=== PATIENT | male | born 1955 | race Hispanic/Latino ===

== ENCOUNTER 2019-04-10 22:33 | Emergency (ER) | payer OTHER ==
--- OUTSIDE RECORDS SUMMARY | 2019-04-10 22:35 | XMS REPORT | Summary of Care ---
:1955 Author Organization [facility] Address [address] [place] [address] Care Team Providers Name Role Phone Edward Pelaez Primary Care Provider Reason for Visit Reason Comments LAB WORK Encounter Details Date Type Department Care Team Description 03/15/2019 Employee Benefits Attorney Visit [facility] Wallace Gomez MD [address] [facility] [address] [place], [place] [address] Chest pain, unspecified type; Phlebotomy 1, [facility] Lab Essential hypertension; Lab-Nikolai TE (obstructive sleep apnea) [address] [facility] [place] [phone] Allergies No Known Allergiesdocumented as of this encounter (statuses as of 03/15/2019) Medications Medication Sig Dispensed Refills Start Date End Date Status METOPROLOL SUCCINATE TAKE 1 TABLET BY 90 tablet 1 02/13/2018 Active XL 50 mg 24 hr tablet MOUTH EVERY DAY aspirin 81 mg Take 1 tablet by 90 tablet 3 03/16/2018 Active chewable tablet mouth daily. lisinopril 40 mg Take 1 tablet by 90 tablet 3 08/30/2018 Active tabletIndications: mouth daily. Hypertension, unspecified type nitroglycerin 0.[address] 1 tablet 1 Bottle 5 12/27/2018 Active sublingual under the tongue tabletIndications: every 5 (five) Chest pain, minutes as needed unspecified type, RUSSELL for Chest pain. (dyspnea on exertion) ROSUVASTATIN 20 mg TAKE 1 TABLET BY 90 tablet 1 02/19/2019 Active tablet MOUTH EVERYDAY AT BEDTIME peg-electrolyte soln Take as directed 4000 mL 0 03/01/2019 Active 236-22.74-6.74 -5.86 before colonoscopy gram solution documented as of this encounter (statuses as of 03/15/2019) Active Problems Problem Noted Date Abdominal pain, epigastric 03/02/2019 Overview: Added automatically from request for surgery [id number] Colon cancer screening 03/02/2019 Overview: Added automatically from request for surgery [id number] Obesity (BMI 30-39.9) 04/26/2018 documented as of this encounter (statuses as of 03/15/2019) Immunizations Name Administration Dates Next Due Tdap 05/28/2013 documented as of this encounter Social History Tobacco Use Types Packs/Day Years Used Date Former Smoker Cigarettes 0.5 30 Quit: 09/29/2017 Smokeless Tobacco: Never Used Comments: Quit date: 09/29/17. Alcohol Use Drinks/Week oz/Week Comments Yes Sex Assigned at Date Recorded Not on file Job Start Date Occupation Industry Not on file Not on file Not on file Travel History Travel Start Travel End No recent travel history available. documented as of this encounter Last Filed Vital Signs Not on filedocumented in this encounter Plan of Treatment Date Type Specialty Care Team Description 03/22/2019 Appointment Cardiac Munitions Worker Wallace Gomez MD [address] [place] [address] [address] [place] [address] [phone] Outpt-Tracy, Ccl 04/09/2019 Hospital Encounter Surgery Bautista De León Abdominal pain, K, DO epigastric [address] [id number] [place], [place] [address] 04/09/2019 Surgery Surgery Bautista De León COLONOSCOPY K, DO [address] [id number] [place], [place] [address] 04/17/2019 Office Visit Surgery Bobbi Marquez MD 2240 [facility] [address] [place] [address] [phone] 08/29/2019 Office Visit Cardiology Wallace Gomez MD 146 [facility] [address] [place], [place] [address] 08/30/2019 Office Visit Internal Medicine PelaezEdward dumonth 301 [place] [address] [phone] 09/10/2019 Office Visit Gastroenterology Pasquale Baca MD 2240 [place] [address] [phone] Name Type Priority Associated Diagnoses Date/Time aPTT LAB Routine Chest pain, unspecified 03/15/2019 8:30 AM type CDT Essential hypertension TE (obstructive sleep apnea) BASIC METABOLIC PANEL LAB Routine Chest pain, unspecified 03/15/2019 8:30 AM (NA, K, CL, CO2, GLUCOSE, type CDT BUN, CREATININE, CA) Essential hypertension TE (obstructive sleep apnea) PROFILE / HEMOGRAM LAB Routine Chest pain, unspecified 03/15/2019 8:30 AM type CDT Essential hypertension TE (obstructive sleep apnea) PROTHROMBIN TIME / INR LAB Routine Chest pain, unspecified 03/15/2019 8: 30 AM type CDT Essential hypertension TE (obstructive sleep apnea) Health Maintenance Due Date Last Done Comments Zoster Recombinant Vaccine 2005 (SHINGRIX) (1 of 2) INFLUENZA VACCINE 04/15/2019 LUNG CANCER SCREEN: Recommended 03/06/2020 03/06/2019 for age 55-80 with 30 + pack year history DTaP,Tdap,and Td Vaccines (2 - Td) 05/28/2023 05/28/2013 COLONOSCOPY 04/26/2028 04/26/2018 HEPATITIS C (HCV) SCREEN Completed 02/27/2018 PNEUMOCOCCAL 0-64 YEARS COMBINED Aged Out No longer eligible based on SERIES patient's age to complete this topic documented as of this encounter Results Not on filedocumented in this encounter Visit Diagnoses Diagnosis Chest pain, unspecified type Essential hypertension Unspecified essential hypertension TE (obstructive sleep apnea) Obstructive sleep apnea (adult) (pediatric) documented in this encounter [phone] [address] [phone] [place], [place] 0 (Work) [address] documented as of this encounter
--- OUTSIDE RECORDS SUMMARY | 2019-04-10 22:35 | XMS REPORT | Summary of Care ---
:1955 Author Organization [facility] Address [address] [place] [address] Care Team Providers Name Role Phone Edward Pelaez Twin Primary Care Provider Encounter Details Date Type Department Care Team Description 03/15/2019 Orders Only [facility] Doctor Unassigned, No 301 [facility] [place] [address] 301 [place] [address] Allergies No Known Allergiesdocumented as of this [...] Overview: Added automatically from request for surgery [id number] Colon cancer screening 03/02/2019 Overview: Added automatically from request for surgery [id number] Obesity (BMI 30-39.9) 04/26/2018 documented as of [...] Treatment Date Type Specialty Care Team Description 03/15/2019 It Account Manager Visit Clinical Medical Wallace Gomez MD [address] [address] [phone] Laboratory 1, Adc Lab 03/22/2019 Appointment Cardiac Airplane Tester Wallace Gomez MD [address] [address] [phone] Outpt-Tracy, Ccl 04/09/2019 Hospital Encounter Surgery Genet, Abdominal pain, Bautista Martinez, DO epigastric [address] [id number] [place] [address] [phone] 04/09/2019 Surgery Surgery [facility], COLONOSCOPY Bautista Martinez DO [address] [id number] [place], [place] [address] 04/17/2019 Office Visit Surgery Bobbi Marquez MD 2240 [facility] [address] [place] [address] [phone] 08/29/2019 Office Visit Cardiology Wallace Gomez MD 146 [facility] [address] [place] [address] [phone] 08/30/2019 Office Visit Internal Medicine Edward Pelaez Twin [address] [place] [address] [phone] 09/10/2019 Office Visit Gastroenterology Pasquale Baca MD 2240 [place] [address] [phone] Health Maintenance Due Date Last Done Comments [...] this topic documented as of this encounter Procedures Procedure Name Priority Date/Time Associated Diagnosis Comments ASSIGNMENT OF BENEFITS Routine 03/15/2019 8:20 AM CDT documented in this encounter Results Not on filedocumented in this encounter Insurance Payer Benefit Plan / Group Subscriber ID Effective Dates Phone Address Type AETNA AETNA HMO [id number] 2017-Present HMO documented as of this encounter
--- OUTSIDE RECORDS SUMMARY | 2019-04-10 22:36 | XMS REPORT | Summary of Care ---
:1955 Author Organization [facility] Address [address] [place] [address] Care Team Providers Name Role Phone PelaezEdward francisco Twin Primary Care Provider Reason for Visit Reason Comments Other pre-visit planning Encounter Details Date Type Department Care Team Description 03/23/2019 Case Management [facility] Phoebe Harrison Other (pre-visit Hospitals and L, BOILER HOUSE INSPECTOR planning ) Clinics [address] [place] [address] [place] [address] [place], [place] [phone] [address] Allergies No Known Allergiesdocumented as of this encounter (statuses as of 03/23/2019) Medications Medication Sig Dispensed Refills Start Date [...] as of this encounter (statuses as of 03/23/2019) Active Problems Problem Noted Date Abdominal pain, epigastric 03/02/2019 Overview: Added automatically from request for surgery [id number] Colon cancer screening 03/02/2019 Overview: Added automatically from request for surgery [id number] Obesity (BMI 30-39.9) 04/26/2018 documented as of this encounter (statuses as of 03/23/2019) Immunizations Name Administration Dates Next Due Tdap [...] Treatment Date Type Specialty Care Team Description 04/09/2019 Hospital Encounter Surgery Bautista De León Abdominal pain, K, DO epigastric [address] [facility] FY[address] [place] [address] [phone] 04/09/2019 Anesthesia Event Surgery Lali Coffman RN 301 [place] [address] 04/09/2019 Surgery Surgery Bautista De León COLONOSCOPY K, DO [address] [id number] [place], [place] [address] 04/17/2019 Office Visit Surgery Bobbi Marquez MD 2240 [facility] [address] [place] [address] [phone] 08/29/2019 Office Visit Cardiology Wallace Gomez MD 146 [facility] [address] [place], [place] [address] 08/30/2019 Office Visit Internal Medicine Latanya Edward Lirianoh 301 [place] [address] [phone] 09/10/2019 Office Visit Gastroenterology Pasquale Baca MD 2240 [place] [address] [phone] Health Maintenance Due Date Last Done Comments [...] filedocumented in this encounter Visit Diagnoses Diagnosis 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
--- OUTSIDE RECORDS SUMMARY | 2019-04-10 22:36 | XMS REPORT | Summary of Care ---
:1955 Author Organization [facility] Address [address] [place] [address] Care Team Providers Name Role Phone Edwadr Pelaez Primary Care Provider Reason for Visit Reason Comments Notification Encounter Details Date Type Department Care Team Description 03/23/2019 Telephone [facility] Cardiothoracic Hernan Menchaca Jr., Notification Surgery-[place] [address] 100[address] [facility], [address] [place] [address] Floor [address] [place] [address] Allergies No Known Allergiesdocumented as of this [...] Overview: Added automatically from request for surgery [id number] Colon cancer screening 03/02/2019 Overview: Added automatically from request for surgery [id number] Obesity (BMI 30-39.9) 04/26/2018 documented as of [...] León Abdominal pain, K, DO epigastric 301 [facility] [id number] [place] [address] [phone] 04/09/2019 Anesthesia Event Surgery Lali Coffman RN 301 [place] [address] 04/09/2019 Surgery Surgery Bautista De León COLONOSCOPY K, DO [address] [id number] [place], [place] [address] 04/17/2019 Office Visit Surgery Bobbi Marquez MD 2240 [facility] [address] [place] [address] [phone] 08/29/2019 Office Visit Cardiology Wallace Gomez MD 146 [facility] [address] [place] [address] [phone] 08/30/2019 Office Visit Internal Medicine Edward Pelaez [facility] 301 [place] [address] [phone] 09/10/2019 Office Visit Gastroenterology Pasquale Baca MD 2240 [place] [address] [phone] Health Maintenance Due Date Last Done Comments [...] Dates Phone Address Type AETNA AETNA HMO [id number] 2017-Present HMO documented as of this encounter
--- OUTSIDE RECORDS SUMMARY | 2019-04-10 22:36 | XMS REPORT | Summary of Care ---
:1955 Author Organization [facility] Address [address] [place] [address] Care Team Providers Name Role Phone Latanya Edward Twin Primary Care Provider Reason for Visit (Routine) Status Reason Specialty Diagnoses / Procedures Referred By Contact Referred To Contact Closed Cardiology Diagnoses Chest pain, unspecified type Essential hypertension TE (obstructive sleep apnea) Wallace Gomez MD Procedures Cardiac Cath Request for Service (Cardiology Use Only) HI CATH PLACEMENT & NJX CORONARY ART ANGIO IMG S&I HI CATH PLMT L HRT & ARTS W/NJX & ANGIO IMG S&I HI ENDOLUMINAL CORONARY IVUS OCT I&R INITIAL VESSEL 146 [facility] HI IV DOP HELEN&/OR PRESS C/ABHI RSRV CIERRA 1ST VSL HI PRQ TRLUML CORONARY ANGIOPLASTY ONE ART/BRANCH HI PRQ TRLUML CORONARY ANGIO/ATHERECT ONE ART/BRNCH HI PRQ TRLUML CORONARY STENT W/ANGIO ONE ART/BRNCH DRIVE HI PRQ TRLUML CORONRY STENT/ATH/ANGIO ONE ART/BRNCH [address] [place] [address] Encounter Details Date Type Department Care Team Description 03/22/2019 [facility] Wallace Gomez MD 146 [facility] [address] [place] [address] Status post cardiac Encounter Center Cardiac Randolph Espinosa MD [address] [id number] [place], [place] [address] catheterization Catheterization Lab Outpt-Zina Molina (Primary Dx) [facility], 6th Floor 712 [facility] [address], [address] [place] [phone] Allergies No Known Allergiesdocumented as of this [...] Overview: Added automatically from request for surgery [id number] Colon cancer screening 03/02/2019 Overview: Added automatically from request for surgery [id number] Obesity (BMI 30-39.9) 04/26/2018 documented as of [...] of this encounter Last Filed Vital Signs Vital Sign Reading Time Taken Comments Blood Pressure 121/77 03/22/2019 12:05 PM CDT standing Pulse 77 03/22/2019 12:06 PM CDT Temperature - - Respiratory Rate 18 03/22/2019 12:06 PM CDT Oxygen Saturation 96% 03/22/2019 12:06 PM CDT Inhaled Oxygen Concentration - - Weight 107 kg (235 lb 14.3 oz) 03/22/2019 7:58 AM CDT Height 172.7 cm (5' 7.99") 03/22/2019 7:58 AM CDT Body Mass Index 35.88 03/22/2019 7:58 AM CDT documented in this encounter Progress Notes Murphy Sanchez MD - 03/22/2019 1:58 PM CDTPatient was seen prior to discharge, he spoke with Dr Lainez from CT surgery, CT surgery team will call him with a date for surgery. Doing well, asymptomatic, right radial puncture site looks well, no hematoma or bleed. Good radial pulse. OK to discharge home. Murphy Sanchez Fellow, General Cardiology, [facility]. documented in this encounter Plan of Treatment Date Type Specialty Care Team Description 04/09/2019 Hospital Encounter Surgery Bautista De León Abdominal pain, K, DO epigastric [address] [id number] [place] [address] [phone] 04/09/2019 Anesthesia Event Surgery Lali Coffman, RN 301 [place] [address] 04/09/2019 Surgery Surgery Bautista De León COLONOSCOPY K, DO [address] [id number] [place] [address] [phone] 04/17/2019 Office Visit Surgery Bobbi Marquez MD 2240 [facility] [address] [place] [address] [phone] 08/29/2019 Office Visit Cardiology Wallace Gomez MD 146 [facility] [address] [place] [address] 08/30/2019 Office Visit Internal Medicine Edward Pelaezh 301 [place] [address] [phone] 09/10/2019 Office Visit Gastroenterology Pasquale Baca MD 2240 [place] [address] [phone] Health Maintenance Due Date Last Done Comments [...] Procedure Name Priority Date/Time Associated Diagnosis Comments POCT ACT LOW RANGE Routine 03/22/2019 10:13 AM Results for this CDT procedure are in the results section. documented in this encounter Results POCT ACT LOW RANGE (03/22/2019 10:13 AM CDT) ACTLR 130 89 - 169 Seconds [facility] Specimen Blood Performing Organization Address City/State/Zipcode Phone Number [facility] CLIA: [id number], 301 [place] [address] [facility] documented in this encounter Visit Diagnoses Diagnosis Status post cardiac catheterization - Primary Other postprocedural status documented in this encounter Administered Medications Medication Order MAR Action Action Date Dose Rate Site clopidogrel (PLAVIX) tablet Given 03/22/2019 8:11 AM CDT 600 mg Oral, TITRATE - FOR PROCEDURE USE, 1 dose, Starting Linda 03/22/19 at 0811, Until Linda 03/22/19 at 0811, Routine FENTanyl PF (SUBLIMAZE (PF)) injection Given 03/22/2019 8:24 AM CDT 25 mcg Slow IV Push, TITRATE - FOR PROCEDURE USE, 1 dose, Starting Linda 03/22/19 at 0824, Until Linda 03/22/19 at 0824, Routine heparin 1,000 unit/mL injection Given 03/22/2019 8:31 AM CDT 3,000 Units Slow IV Push, TITRATE - FOR PROCEDURE USE, 1 dose, Starting Linda 03/22/19 at 0831, Until Linda 03/22/19 at 0831, Routine lidocaine 1% (PF) (XYLOCAINE) injection Given 03/22/2019 8:24 AM CDT 10 mL Infiltration, TITRATE - FOR PROCEDURE USE, 1 dose, Starting Linda 03/22/19 at 0824, Until Linda 03/22/19 at 0824, Routine midazolam (VERSED) injection Given 03/22/2019 8:24 AM CDT 1 mg IV Push, TITRATE - FOR PROCEDURE USE, 1 dose, Starting Linda 03/22/19 at 0824, Until Linda 03/22/19 at 0824, Routine NaCl 0.9% (NS) bolus infusion New Bag 03/22/2019 8:24 AM CDT 500 mL IV Piggyback, CONTINUOUS PRN, Starting Linda 03/22/19 at 0824, Until Linda 03/22/19 at 0824, STAT documented in this encounter [phone] [address] [phone] [place], [place] 0 (Work) [address] documented as of this encounter
--- OUTSIDE RECORDS SUMMARY | 2019-04-10 22:36 | XMS REPORT | Summary of Care ---
:1955 Author Organization [facility] Address [address] [place] [address] Care Team Providers Name Role Phone Edward Pelaez Primary Care Provider Encounter Details Date Type Department Care Team Description 03/22/2019 Prep For Surgery [facility] Hernan Menchaca Jr., and Clinics [address] [place] [address] [place], [place] [phone] Allergies No Known Allergiesdocumented as of this [...] Overview: Added automatically from request for surgery [id number] Colon cancer screening 03/02/2019 Overview: Added automatically from request for surgery [id number] Obesity (BMI 30-39.9) 04/26/2018 documented as of [...] León Abdominal pain, K, DO epigastric 301 [facility] [id number] [place], [place] [address] 04/09/2019 Anesthesia Event Surgery Lali Coffman RN [address] [place] [address] 04/09/2019 Surgery Surgery Bautista De León COLONOSCOPY K, DO 301 [facility] NL3985 [place], [place] [address] 04/17/2019 Office Visit Surgery Bobbi Marquez MD 2240 [facility] [address] [place] [address] [phone] 08/29/2019 Office Visit Cardiology Wallace Gomez MD 146 [facility] [address] [place], [place] [address] 08/30/2019 Office Visit Internal Medicine Edward Pelaez Twin 301 [place] [address] [phone] 09/10/2019 Office Visit Gastroenterology Pasquale Baca MD 2240 [place] [address] [phone] Health Maintenance Due Date Last Done Comments [...] Dates Phone Address Type AETNA AETNA HMO [id number] 2017-Present HMO documented as of this encounter
--- OUTSIDE RECORDS SUMMARY | 2019-04-10 22:36 | XMS REPORT | Summary of Care ---
:1955 Author Organization [facility] Address [address] [place] [address] Care Team Providers Name Role Phone Edward Pelaez Primary Care Provider Reason for Visit Reason Comments Pre-Visit Planning Encounter Details Date Type Department Care Team Description 03/15/2019 Telephone [facility] Wallace Gomez MD Pre-Visit Planning Cardiac Catheterization 146 [facility], 6th [address] Floor [place] [address] [address], [address] [place] [phone] Allergies No Known Allergiesdocumented as of this [...] Overview: Added automatically from request for surgery [id number] Colon cancer screening 03/02/2019 Overview: Added automatically from request for surgery [id number] Obesity (BMI 30-39.9) 04/26/2018 documented as of [...] Specialty Care Team Description 03/22/2019 Appointment Cardiac Remediation Consultant Wallace Gomez MD 146 [facility] [address] [place] [address] [phone] Outpt-Tracy, Ccl 04/09/2019 Hospital Encounter Surgery Bautista De León Abdominal pain, K, DO epigastric [address] [id number] [place] [address] [phone] 04/09/2019 Surgery Surgery Bautista De León COLONOSCOPY K, DO [address] [id number] [place], [place] [address] 04/17/2019 Office Visit Surgery Bobbi Marquez MD 2240 [facility] [address] [place] [address] [phone] 08/29/2019 Office Visit Cardiology Wallace Gomez MD 146 [facility] [address] [place] [address] [phone] 08/30/2019 Office Visit Internal Medicine Edward Pelaez Twin [address] [place] [address] [phone] 09/10/2019 Office Visit Gastroenterology Pasquale Baca MD 2240 [place] [address] [phone] Health Maintenance Due Date Last Done Comments [...] Dates Phone Address Type AETNA AETNA HMO [id number] 2017-Present HMO documented as of this encounter
--- OUTSIDE RECORDS SUMMARY | 2019-04-10 22:36 | XMS REPORT | Summary of Care ---
:1955 Author Organization [facility] Address [address] [place] [address] Care Team Providers Name Role Phone Edward Pelaez Primary Care Provider Reason for Referral (GENEVA) Status Reason Specialty Diagnoses / Procedures Referred By Referred To Contact Contact Closed Vascular Diagnoses Coronary artery disease involving [place] coronary artery of [place] heart with other form of angina pectoris Preop cardiovascular exam Phoebe Harrison Sonography Procedures CAROTID DUPLEX BILATERAL BY VASCULAR LAB [place] [address] [address] Reason for Visit Reason Comments Pre-Op Exam Encounter Details Date Type Department Care Team Description 03/23/2019 Case Management [facility] and Phoebe Harrison, Pre -Op Exam Clinics [address] [address] [place], [place] [phone] [address] Allergies No Known Allergiesdocumented as of [...] Overview: Added automatically from request for surgery [id number] Colon cancer screening 03/02/2019 Overview: Added automatically from request for surgery [id number] Obesity (BMI 30-39.9) 04/26/2018 documented as of [...] Signs Not on filedocumented in this encounter Progress Notes Phoebe Harrison FNP - 03/23/2019 10:47 AM CDTPatient told to go to [facility] before 4pm for carotid duplex. . Patient verbalized understanding. Colonoscopy screening cancelled and to be rescheduled post CABG. DALIA HarveyC Cardiothoracic Surgery Pager: [phone] Provider # [id number] documented in this encounter Plan of Treatment Date Type Specialty Care Team Description 04/09/2019 Hospital Encounter Surgery Bautista De León Abdominal pain, K, DO epigastric [id number] [place] [address] [phone] 04/09/2019 Anesthesia Event Surgery Lali Coffman, RN 301 [place] [address] 04/09/2019 Surgery Surgery Bautista De León COLONOSCOPY K, DO [address] [id number] [place], [place] 6745[address] 04/17/2019 [place] [address] [place] [address] 2.100 [place], [place] 561343 08/29/2019 Office Visit Cardiology Wallace Gomez MD [address] [facility] [address] [place], [place] [address] 08/30/2019 Office Visit Internal Medicine Edward Pelaez [place] [address] [place] [address] [phone] 09/10/2019 Office Visit Gastroenterology Pasquale Baca MD [address] [place] [address] 639233 Health Maintenance Due Date Last Done Comments [...] Visit Diagnoses Diagnosis Coronary artery disease involving [place] coronary artery of [place] heart with other form of angina pectoris - Primary Preop cardiovascular exam Pre-operative cardiovascular examination documented in this encounter Insurance Payer Benefit Plan / Group Subscriber ID Effective Dates Phone Address Type AETNA AETNA HMO [id number] 2017-Present HMO documented as of this encounter
--- OUTSIDE RECORDS SUMMARY | 2019-04-10 22:36 | XMS REPORT | Summary of Care ---
:1955 Author Organization [facility] Address [address] [place] [address] Care Team Providers Name Role Phone Edward Pelaez Primary Care Provider Reason for Visit Reason Comments Orders Encounter Details Date Type Department Care Team Description 03/23/2019 Case Management [facility] and Phoebe Harrison Orders Clinics [address] [address] [place] [phone] [address] Allergies No Known Allergiesdocumented as of [...] Overview: Added automatically from request for surgery [id number] Colon cancer screening 03/02/2019 Overview: Added automatically from request for surgery [id number] Obesity (BMI 30-39.9) 04/26/2018 documented as of [...] León Abdominal pain, K, DO epigastric [address] [address] [phone] 04/09/2019 Anesthesia Event Surgery Lali Coffman RN 301 [place] [address] 04/09/2019 Surgery Surgery Bautista De León COLONOSCOPY K, DO 301 [facility] [id number] [place], [place] [address] 04/17/2019 Office Visit Surgery Bobbi Marquez MD [address] [facility] [address] [place] [address] [phone] 08/29/2019 Office Visit Cardiology Wallace Gomez MD 146 [facility] [address] [place], [place] [address] 08/30/2019 Office Visit Internal Medicine Edward Pelaez 301 [place] [address] [phone] 09/10/2019 Office Visit Gastroenterology Pasquale Baca MD 2240 [place] [address] [phone] Name Type Priority Associated Diagnoses Order Schedule Type and Screen - LAB Routine Coronary artery disease Expected: 03/23/2019, involving [place] coronary Expires: 04/04/2019 artery of [place] heart with other form of angina pectoris Preop examination URINALYSIS LAB Routine Coronary artery disease Expected: 03/23/2019, involving [place] coronary Expires: 04/04/2019 artery of [place] heart with other form of angina pectoris Preop examination XR CHEST 2 VW IMAGING Routine Coronary artery disease Expected: 03/23/2019, involving [place] coronary Expires: 04/04/2019 artery of [place] heart with other form of angina pectoris Preop examination Health Maintenance Due Date Last Done Comments [...] Visit Diagnoses Diagnosis Coronary artery disease involving [place] coronary artery of [place] heart with other form of angina pectoris - Primary Preop examination Preoperative examination, unspecified documented in this encounter Insurance Payer Benefit Plan / Group Subscriber ID Effective Dates Phone Address Type AETNA AETNA O [id number] 2017-Present HMO documented as of this encounter
--- OUTSIDE RECORDS SUMMARY | 2019-04-10 22:37 | XMS REPORT | Summary of Care ---
:1955 Author Organization [facility] Address [address] [place] [address] Care Team Providers Name Role Phone Edward Pelaez Primary Care Provider Reason for Referral (GENEVA) Status Reason Specialty Diagnoses / Procedures Referred By Referred To Contact Contact Closed Vascular Diagnoses Coronary artery disease involving [place] coronary artery of [place] heart with other form of angina pectoris Preop cardiovascular exam Phoebe Harrison Sonography Procedures CAROTID DUPLEX BILATERAL BY VASCULAR LAB [facility] 301 [place] [address] (GENEVA) Status Reason Specialty Diagnoses / Procedures Referred By Referred To Contact Contact Closed Vascular Diagnoses Coronary artery disease involving [place] coronary artery of [place] heart with other form of angina pectoris Preop cardiovascular exam Phoebe Harrison Sonography Procedures CAROTID DUPLEX BILATERAL BY VASCULAR LAB [facility] 301 [place] [address] Reason for Visit (Routine) Status Reason Specialty Diagnoses / Referred By Referred To Procedures Contact Contact Closed IM-CARDIOVASCULAR Diagnoses Coronary artery disease involving [place] coronary artery of [place] heart with other form of angina pectoris CAROTID DUPLEX BILATERAL BY VASCULAR LAB Hernan Menchaca, Adc Cardio DISEASE / Vascular Procedures CAROTID DUPLEX BILATERAL BY VASCULAR LAB [place] DUPLEX SCAN EXTRACRANIAL,BILAT VAS LAB STUDY [id number] - CAROTID DUPLEX BILATERAL BY VASCULAR LAB [id number] - [place] DUPLEX SCAN EXTRACRANIAL,JACKIE Salgado MD Vascular Sonography 301 [place] [address] Encounter Details Date Type Department Care Team Description 03/23/2019 [facility] Jr., MD 301 [place] [address] [facility] Cardio Vascular [address] [place] [address] Allergies No Known Allergiesdocumented as of this encounter (statuses as of 03/24/2019) Medications Medication Sig Dispensed Refills Start Date [...] as of this encounter (statuses as of 03/24/2019) Active Problems Problem Noted Date Coronary artery disease involving [place] coronary artery of [place] heart 03/23 with other form of angina pectoris Overview: Added automatically from request for surgery [id number] Abdominal pain, epigastric 03/02/2019 Overview: Added automatically from request for surgery [id number] Colon cancer screening 03/02/2019 Overview: Added automatically from request for surgery [id number] Obesity (BMI 30-39.9) 04/26/2018 documented as of this encounter (statuses as of 03/24/2019) Immunizations Name Administration Dates Next Due Tdap [...] Treatment Date Type Specialty Care Team Description 04/05/2019 Hospital Encounter Ambulatory Surgical Hernan Menchaca Coronary artery MD Naomi disease involving [address] [facility] [place] coronary [place] artery of [place] [address] heart with other [phone] form of angina pectoris 04/09/2019 Hospital Encounter Surgery Bautista De León Abdominal pain, K, DO epigastric [address] 4979[address] 04/09/2019 Anesthesia Event Surgery Lali Coffman RN 301 [place] [address] 04/09/2019 Surgery Surgery Bautista De León COLONOSCOPY K, DO [address] [address] 04/17/2019 Office Visit Surgery Bobbi Marquez MD 2240 [facility] [address] [place] [address] [phone] 08/29/2019 Office Visit Cardiology Wallace Gomez MD [address] [facility] [address] [place], [place] [address] 08/30/2019 Office Visit Internal Medicine Edward Pelaezh [address] [place] [address] [phone] 09/10/2019 Office Visit Gastroenterology Pasquale Baca MD [address] [place] [address] [phone] Health Maintenance Due Date Last Done Comments [...] Procedure Name Priority Date/Time Associated Diagnosis Comments CAROTID DUPLEX GENEVA 03/23/2019 10:25 AM Coronary artery disease BILATERAL BY VASCULAR CDT involving [place] coronary LAB artery of [place] heart with other form of angina pectoris Preop cardiovascular exam documented in this encounter Results Not on filedocumented in this encounter Visit Diagnoses Diagnosis Coronary artery disease involving [place] coronary artery of [place] heart with other form of angina pectoris Preop cardiovascular exam Pre-operative cardiovascular examination documented in this encounter [phone] [address] [phone] [place], [place] 0 (Work) [address] documented as of this encounter
--- OUTSIDE RECORDS SUMMARY | 2019-04-10 22:37 | XMS REPORT | Summary of Care ---
:1955 Author Organization [facility] Address [address] [place] [address] Care Team Providers Name Role Phone Edward Pelaez Primary Care Provider Reason for Visit (Routine) Status Reason Specialty Diagnoses / Procedures Referred By Contact Referred To Contact Closed Radiology Procedures Phoebe Harrison, Jack X-Ray XR CHEST 2 [facility] [address] [facility] XR CHEST 2 301 [place] [address] Encounter Details Date Type Department Care Team Description 04/03/2019 Hospital Encounter [facility] Phoebe Harrison Arrived [place] [facility] [address] [facility] [address] [place] [address] [place], [place] [phone] [address] Allergies No Known Allergiesdocumented as of this encounter (statuses as of 04/04/2019) Medications Medication Sig Dispensed Refills Start Date [...] as of this encounter (statuses as of 04/04/2019) Active Problems Problem Noted Date Coronary artery disease involving [place] coronary artery of [place] heart 03/23 with other form of angina pectoris Overview: Added automatically from request for surgery [id number] Abdominal pain, epigastric 03/02/2019 Overview: Added automatically from request for surgery [id number] Colon cancer screening 03/02/2019 Overview: Added automatically from request for surgery [id number] Obesity (BMI 30-39.9) 04/26/2018 documented as of this encounter (statuses as of 04/04/2019) Immunizations Name Administration Dates Next Due Tdap [...] Coronary artery MD Naomi disease involving [address] [place] [address] [facility] artery of [place] [address] heart with other [phone] form of angina [phone] pectoris (Fax) 04/05/2019 Anesthesia Event Surgery Lakeisha Goel RN 04/05/2019 Surgery Surgery Hernan Menchaca CORONARY ARTERY MD Naomi BYPASS GRAFT 301 [place] [phone] 04/17/2019 Office Visit Surgery Bobbi Marquez MD 2240 [facility] 2.100 [place] [address] [phone] 08/29/2019 Office Visit Cardiology Wallace Gomez MD [address] [place] [address] [address] [place] [address] [phone] 08/30/2019 Office Visit Internal Medicine Edward Pelaez [facility] 301 [place] [address] [phone] 09/10/2019 Office Visit Gastroenterology Pasquale Baca MD 2240 [place], [place] [address]23[address] Health Maintenance Due Date Last Done Comments Zoster Recombinant Vaccine 2005 (SHINGRIX) (1 of 2) INFLUENZA VACCINE (#1) 2019 LUNG CANCER SCREEN: Recommended 03/06/2020 03/06/2019 for age 55-80 with 30 + pack year history DTaP,Tdap,and Td Vaccines (2 - Td) 05/28/2023 05/28/2013 COLONOSCOPY 04/26/2028 04/26/2018 HEPATITIS C (HCV) SCREEN Completed 02/27/2018 PNEUMOCOCCAL 0-64 YEARS COMBINED Aged Out No longer eligible based on SERIES patient's age to complete this topic documented as of this encounter Procedures Procedure Name Priority Date/Time Associated Diagnosis Comments XR CHEST 2 VW Routine 04/03/2019 2:10 Coronary artery Results for this PM CDT disease involving procedure are in rosebud coronary the results artery of rosebud section. heart with other form of angina pectoris Preop examination CONSENT/REFUSAL FOR Routine 04/03/2019 1:48 DIAGNOSIS AND PM CDT TREATMENT ASSIGNMENT OF Routine 04/03/2019 1:48 BENEFITS PM CDT documented in this encounter Results XR CHEST 2 VW (04/03/2019 2:10 PM CDT) Specimen Narrative Performed At HISTORY: Preop for CABG. PACS/VR/DOSE TECHNIQUE: PA and lateral views of the chest are obtained. Comparison made with 12/27/2018 study. FINDINGS: Poor inspiratory effort is shown by the patient. No acute pneumonia detected. No pneumothorax or pleural effusion or pulmonary congestion. Cardiothoracic ratio of approximately 13.2/34.3 cm is consistent with normal cardiac size. Thoracic aorta is elongated and tortuous. Posterior segment of left fifth rib is slightly expansile without any destruction of the cortex. 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 CONCLUSIONS: No signs of acute cardiopulmonary disease. Procedure Note [facility], Radiant Results Inft User - 04/03/2019 2:14 PM CDT HISTORY: Preop for CABG. TECHNIQUE: PA and lateral views of the chest are obtained. Comparison made with 12/27/2018 study. FINDINGS: Poor inspiratory effort is shown by the patient. No acute pneumonia detected. No pneumothorax or pleural effusion or pulmonary congestion. Cardiothoracic ratio of approximately 13.2/34.3 cm is consistent with normal cardiac size. Thoracic aorta is elongated and tortuous. Posterior segment of left fifth rib is slightly expansile without any destruction of the cortex. 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 CONCLUSIONS: No signs of acute cardiopulmonary disease. Performing Organization Address City/State/Zipcode Phone Number PACS/VR/DOSE documented in this encounter Visit Diagnoses Diagnosis Coronary artery disease involving [place] coronary artery of rose[place] heart with other form of angina pectoris Preop examination Preoperative examination, unspecified documented in this encounter [phone] [address] [phone] [place], [place] 0 (Work) [address] documented as of this encounter
--- OUTSIDE RECORDS SUMMARY | 2019-04-10 22:37 | XMS REPORT | Summary of Care ---
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 [facility] Phoebe Harrison, TAX RECORD CLERK 301 [place] [address] Coronary artery disease involving [place] coronary artery of [place] heart with other form of angina pectoris; Phlebotomy 1, Adc Lab Preop examination Lab-[address] [place] [phone] Allergies No Known Allergiesdocumented as of this encounter (statuses as of 04/03/2019) Medications Medication Sig Dispensed Refills Start Date [...] as of this encounter (statuses as of 04/03/2019) Active Problems Problem Noted Date Coronary artery disease involving [place] coronary artery of [place] heart 03/23 with other form of angina pectoris Overview: Added automatically from request for surgery [id number] Abdominal pain, epigastric 03/02/2019 Overview: Added automatically from request for surgery [id number] Colon cancer screening 03/02/2019 Overview: Added automatically from request for surgery [id number] Obesity (BMI 30-39.9) 04/26/2018 documented as of this encounter (statuses as of 04/03/2019) Immunizations Name Administration Dates Next Due Tdap [...] Hospital Encounter Ambulatory Surgical Hernan Menchaca Coronary deric Salgado MD disease involving [address] [facility] [place] coronary [place], [place] artery of [place] [address] heart with other [phone] form of angina [phone] pectoris (Fax) 04/05/2019 Anesthesia Event Surgery Lakeisha Goel, BHAVYA 04/05/2019 Surgery Surgery Hernan Menchaca CORONARY DERIC Salgado MD BYPASS GRAFT [address] [place] [address] 04/17/2019 Office Visit Surgery Bobbi Marquez MD 2240 [facility] [place] 2.[address] [place] [address] [phone] 08/29/2019 Office Visit Cardiology Wallace Gomez MD 146 [facility] [address] [place] [address] [phone] 08/30/2019 Office Visit Internal Medicine Edward Pelaezh 301 [place] [address] [phone] 09/10/2019 Office Visit Gastroenterology Pasquale Baca MD 2240 [place] [address] [phone] Name Type Priority Associated Diagnoses Date/Time URINALYSIS LAB Routine Coronary artery disease involving 04/03/2019 2:28 PM CDT [place] coronary artery of [place] heart with other form of angina pectoris [...] Visit Diagnoses Diagnosis Coronary artery disease involving [place] coronary artery of [place] heart with other form of angina pectoris Preop examination Preoperative examination, unspecified documented in this encounter [phone] [address] [phone] [place], [place] 0 (Work) [address] documented as of this encounter
--- OUTSIDE RECORDS SUMMARY | 2019-04-10 22:37 | XMS REPORT | Summary of Care ---
:1955 Author Organization [facility] Address [address] [place] [address] Care Team Providers Name Role Phone Edward Pelaez Primary Care Provider Encounter Details Date Type Department Care Team Description 03/07/2019 Patient Secure [facility] Internal Edward Pelaez [facility] [address] [phone] Allergies No Known Allergiesdocumented as of this encounter (statuses as of 04/07/2019) Medications Medication Sig Dispensed Refills Start Date End Date Status METOPROLOL SUCCINATE TAKE 1 TABLET BY 90 tablet 1 02/13/2018 Suspended XL 50 mg 24 hr MOUTH EVERY DAY tablet aspirin 81 mg Take 1 tablet by 90 tablet 3 03/16/2018 Suspended chewable tablet mouth daily. lisinopril 40 mg Take 1 tablet by 90 tablet 3 08/30/2018 Suspended tabletIndications: mouth daily. Hypertension, unspecified type nitroglycerin 0.[address] 1 tablet 1 Bottle 5 12/27/2018 Suspended sublingual under the tongue tabletIndications: every 5 (five) Chest pain, minutes as needed unspecified type, for Chest pain. RUSSELL (dyspnea on exertion) ROSUVASTATIN 20 mg TAKE 1 TABLET BY 90 tablet 1 02/19/2019 Suspended tablet MOUTH EVERYDAY AT BEDTIME peg-electrolyte soln Take as directed 4000 mL 0 03/01/2019 Suspended 236-22.74-6.74 -5.86 before gram solution colonoscopy documented as of this encounter (statuses as of 04/07/2019) Active Problems Problem Noted Date S/P CABG x 2 on 04/05/2019 04/05/2019 Coronary artery disease involving [place] coronary artery of [place] heart 03/23 with other form of angina pectoris Overview: Added automatically from request for surgery [id number] Abdominal pain, epigastric 03/02/2019 Overview: Added automatically from request for surgery [id number] Colon cancer screening 03/02/2019 Overview: Added automatically from request for surgery [id number] Obesity (BMI 30-39.9) 04/26/2018 TE on CPAP Hyperlipidemia HTN (hypertension) Former smoker Borderline diabetes documented as of this encounter (statuses as of 04/07/2019) Immunizations Name Administration Dates Next Due Tdap [...] Treatment Date Type Specialty Care Team Description 04/17/2019 Office Visit Surgery Bobbi Marquez MD [address] [place] [address] 2.100 [place] [address] [phone] 08/29/2019 Office Visit Cardiology Wallace Gomez MD [address] [place] [address] [place] [id number] 08/30/2019 Office Visit Internal Medicine Edward Pelaezh 301 [place] [address] [phone] 09/10/2019 Office Visit Gastroenterology Pasquale Baca MD [facility] [place] [address] [phone] Health Maintenance Due Date Last Done Comments [...] Dates Phone Address Type AETNA AETNA HMO [id number] 2017-Present HMO documented as of this encounter
--- OUTSIDE RECORDS SUMMARY | 2019-04-10 22:38 | XMS REPORT | Summary of Care ---
:1955 Author Organization [facility] Address [address] [place] [id number] Care Team Providers Name Role Phone Edward Pelaez Primary Care Provider Reason for Visit Reason Comments Cough Encounter Details Date Type Department Care Team Description 04/10/2019 Case Management [facility] Cardiothoracic Phoebe Harrison, Cough Surgery-[facility] [address] [facility] 1005 [facility], [address] [place] [address] Floor [id number] [place] [phone] Allergies No Known Allergiesdocumented as of this encounter (statuses as of 04/10/2019) Medications Medication Sig Dispensed Refills Start Date End Date Status aspirin 81 mg Take 1 tablet by 90 tablet 3 03/16/2018 Active chewable tablet mouth daily. ROSUVASTATIN 20 mg TAKE 1 TABLET BY 90 tablet 1 02/19/2019 Active tablet MOUTH EVERYDAY AT BEDTIME ferrous sulfate 325 Take 1 tablet by 60 tablet 0 04/10/2019 Active mg (65 mg iron) mouth 2 (two) tabletIndications: times daily with Coronary artery meals. disease involving [place] coronary artery of [place] heart with other form of angina pectoris metoprolol tartrate Take 1 tablet by 90 tablet 2 04/10/2019 Active 50 mg mouth every 8 tabletIndications: (eight) hours. S/P CABG (coronary artery bypass graft) spironolactone 25 mg Take 1 tablet by 7 tablet 0 04/10/2019 04/17/2019 Active tabletIndications: mouth daily for Coronary artery 7 days. disease involving [place] coronary artery of [place] heart with other form of angina pectoris docusate 100 mg Take 1 capsule 30 capsule 0 04/10/2019 05/10/2019 Active capsuleIndications: by mouth daily S/P CABG (coronary for 30 days. artery bypass graft) furosemide 40 mg Take 1 tablet by 14 tablet 0 04/10/2019 04/17/2019 Active tabletIndications: mouth every Coronary artery morning and disease involving evening for 7 [place] coronary days. artery of [place] heart with other form of angina pectoris acetaminophen-codeine Take 1 tablet by 42 tablet 0 04/10/2019 04/17/2019 Active 300-30 mg mouth every 4 tabletIndications: (four) hours as S/P CABG (coronary needed for Pain artery bypass graft) (scale 7-10) for up to 7 days. benzonatate (TESSALON Take 1 capsule 90 capsule 0 04/10/2019 05/10/2019 Active PERLES) 100 mg by mouth 3 capsuleIndications: (three) times Postsurgical daily for 30 aortocoronary bypass days. status, Cough, Fluid retention metOLazone 2.5 mg Take 1 tablet by 3 tablet 0 04/10/2019 04/13/2019 Active tabletIndications: mouth daily for body fluid retention 3 days. Indications: water retention documented as of this encounter (statuses as of 04/10/2019) Active Problems Problem Noted Date S/P CABG x 2 on 04/05/2019 04/05/2019 Coronary artery disease involving [place] coronary artery of [place] heart 03/23 with other form of angina pectoris Overview: Added automatically from request for surgery [id number] Abdominal pain, epigastric 03/02/2019 Overview: Added automatically from request for surgery [id number] Colon cancer screening 03/02/2019 Overview: Added automatically from request for surgery [id number] Obesity (BMI 30-39.9) 04/26/2018 TE on CPAP Hyperlipidemia HTN (hypertension) Former smoker Borderline diabetes documented as of this encounter (statuses as of 04/10/2019) Immunizations Name Administration Dates Next Due Pneumococcal Polysaccharide, PPSV23 (PNEUMOVAX) 04/10/2019 Tdap 05/28/2013 documented as of this encounter Social History Tobacco Use Types Packs/Day Years Used Date Former Smoker Cigarettes 0.5 30 Quit: 09/29/2017 Smokeless Tobacco: Never Used Alcohol Use Drinks/Week oz/Week Comments Yes Sex [...] Marquez MD [address] [facility] [address] [place], [place] [id number] 04/18/2019 Office Visit Thoracic Surgery Hernan Menchaca Jr., MD [address] [place] [phone] 08/29/2019 Office Visit Cardiology Wallace Gomez MD [address] [place] [address] [address] [place], [place] [address] 08/30/2019 Office Visit Internal Medicine Edward Pelaez [address] [place], [place] [phone] 09/10/2019 Office Visit Gastroenterology Pasquale Baca MD formerly [facility] [place], [place] [phone] Health Maintenance Due Date Last Done Comments [...] filedocumented in this encounter Visit Diagnoses Diagnosis Postsurgical aortocoronary bypass status - Primary Cough Fluid retention Other fluid overload documented in this encounter Insurance Payer Benefit Plan / Group Subscriber ID Effective Dates Phone Address [id number] 2017-Present HMO documented as of this encounter
--- OUTSIDE RECORDS SUMMARY | 2019-04-10 22:38 | XMS REPORT | Summary of Care ---
:1955 Author Organization [facility] Address [address] [place] [id number] Care Team Providers Name Role Phone Pelaez Edward Twin Primary Care Provider Reason for Referral Other (Routine) Status Reason Specialty Diagnoses / Referred By Referred To Procedures Contact Contact New Request Diagnoses S/P CABG x 2 BernardaHernan mckee Qiangjun, MD Procedures Discharge Follow-up: Specialty Provider WALLACE ALDANA; 4-6 Weeks MD Naomi [address] [place] [address] [phone] [place] [address] Phone: Radiology Services (Routine) Status Reason Specialty Diagnoses / Referred By Referred To Procedures Contact Contact New Request Diagnostic Diagnoses S/P CABG x 2 Bernarda, Radiology Procedures Chest 2 Views - Upright ( PA, LAT) on POD # 3 Hernan Salgado MD [address] [place] [phone] Radiology Services (Routine) Status Reason Specialty Diagnoses / Referred By Referred To Procedures Contact Contact New Request Diagnostic Diagnoses S/P CABG x 2 Bernarda, Radiology Procedures Chest 2 Views - Upright ( PA, LAT) on POD # 3 Hernan Salgado MD [address] [place] [address] Radiology Services (GENEVA) Status Reason Specialty Diagnoses / Referred By Referred To Procedures Contact Contact New Request Diagnostic Diagnoses S/P CABG (coronary artery bypass graft) Bernarda, Radiology Procedures Chest 1 View Hernan Salgado MD [address] [place] [address] Radiology Services (Emergency) Status Reason Specialty Diagnoses / Referred By Referred To Procedures Contact Contact New Request Diagnostic Diagnoses S/P CABG (coronary artery bypass graft) Bernarda, Radiology Procedures Abdomen XRay 1 View Hernan Salgado MD [address] [place] [address] Radiology Services (STAT) Status Reason Specialty Diagnoses / Referred By Referred To Procedures Contact Contact New Request Diagnostic Diagnoses S/P CABG (coronary artery bypass graft) Bernarda, Radiology Procedures Chest 1 View (on admission) Hernan Salgado MD [address] [place] [address] Radiology Services (Emergency) Status Reason Specialty Diagnoses / Referred By Referred To Procedures Contact Contact New Request Diagnostic Diagnoses S/P CABG (coronary artery bypass graft) Bernarda, Radiology Procedures Abdomen XRay 1 View Hernan Salgado MD [address] [place] [address] Radiology Services (GENEVA) Status Reason Specialty Diagnoses / Referred By Referred To Procedures Contact Contact New Request Diagnostic Diagnoses S/P CABG (coronary artery bypass graft) Bernarda, Radiology Procedures Chest 1 View Hernan Salgado MD [address] [place] [address] Radiology Services (STAT) Status Reason Specialty Diagnoses / Referred By Referred To Procedures Contact Contact New Request Diagnostic Diagnoses S/P CABG (coronary artery bypass graft) Bernarda, Radiology Procedures Chest 1 View (on admission) Hernan Salgado MD [address] [place] [address] Reason for Visit Auth/Cert Status Reason Specialty Diagnoses / Referred By Referred To Procedures Contact Contact Ambulatory Surgical Diagnoses Coronary artery disease involving mechoopda coronary artery 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 [I25.118] Fiordaliza Dsu Procedures [place] CABG, ARTERY-VEIN, THREE CORONARY ARTERY BYPASS GRAFT [address] [place] [address] Encounter Details Date Type Department Care Team Description 04/05/2019 - Hospital Encounter CT/ Vascular (FIORDALIZA Menchaca, Hernan Coronary artery 04/10/2019 9A) MD Naomi disease involving [address] [facility] [address] [facility] [place] [address] [place] artery of mechoopda [phone] heart with other [phone] form of angina [phone] pectoris (Fax) Allergies No Known Allergiesdocumented as of this [...] daily with Coronary artery meals. disease involving mechoopda coronary artery 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 metoprolol tartrate Take 1 tablet by 90 tablet 2 04/10/2019 Active 50 mg mouth every 8 tabletIndications: (eight) hours. S/P CABG (coronary artery bypass graft) spironolactone 25 Take 1 tablet by 7 tablet 0 04/10/2019 04/17/20 Active mg mouth daily for 19 tabletIndications: 7 days. Coronary artery disease involving mechoopda coronary artery 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 docusate 100 mg Take 1 capsule 30 capsule 0 04/10/2019 05/10/20 Active capsuleIndications: by mouth daily 19 S/P CABG (coronary for 30 days. artery bypass graft) furosemide 40 mg Take 1 tablet by 14 tablet 0 04/10/2019 04/17/20 Active tabletIndications: mouth every 19 Coronary artery morning and disease involving evening for 7 mechoopda coronary days. artery 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 acetaminophen-codei Take 1 tablet by 42 tablet 0 04/10/2019 04/17/20 Active ne 300-30 mg mouth every 4 19 tabletIndications: (four) hours as S/P CABG (coronary needed for Pain artery bypass (scale 7-10) for graft) up to 7 days. METOPROLOL TAKE 1 TABLET BY 90 tablet 1 02/13/2018 04/10/20 Discontinued SUCCINATE XL 50 mg MOUTH EVERY DAY 19 24 hr tablet lisinopril 40 mg Take 1 tablet by 90 tablet 3 08/30/2018 04/10/20 Discontinued tabletIndications: mouth daily. 19 Hypertension, unspecified type nitroglycerin 0.4 Place 1 tablet 1 Bottle 5 12/27/2018 04/10/20 Discontinued mg sublingual under the tongue 19 tabletIndications: every 5 (five) Chest pain, minutes as unspecified type, needed for Chest RUSSELL (dyspnea on pain. exertion) peg-electrolyte Take as directed 4000 mL 0 03/01/2019 04/10/20 Discontinued soln 236-22.74-6.74 before 19 -5.86 gram solution colonoscopy acetaminophen 325 Take 2 tablets 15 tablet 1 04/10/2019 04/10/20 Discontinued mg by mouth every 6 19 tabletIndications: (six) hours as Coronary artery needed for Temp disease involving > 38.5 C. mechoopda coronary artery 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 furosemide 20 mg Take 1 tablet by 60 tablet 3 04/10/2019 04/10/20 Discontinued tabletIndications: mouth every 19 Coronary artery morning and disease involving evening. mechoopda coronary artery 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 spironolactone 25 Take 1 tablet by 30 tablet 3 04/10/2019 04/10/20 Discontinued mg mouth daily. 19 tabletIndications: Coronary artery disease involving mechoopda coronary artery 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 furosemide 20 mg Take 1 tablet by 14 tablet 0 04/10/2019 04/10/20 Discontinued tabletIndications: mouth every 19 Coronary artery morning and disease involving evening for 7 mechoopda coronary days. artery 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 documented as of this encounter (statuses as of 04/10/2019) Active Problems Problem Noted Date S/P CABG x 2 on 04/05/2019 04/05/2019 Coronary artery disease involving mechoopda coronary artery of mechoopda heart 03/23 with other form of angina pectoris Overview: Added automatically from request for surgery [id number] Abdominal pain, epigastric 03/02/2019 Overview: Added automatically from request for surgery [id number] Colon cancer screening 03/02/2019 Overview: Added automatically from request for surgery [id number] Obesity (BMI 30-39.9) 04/26/2018 TE on CPAP [...] Sign Reading Time Taken Comments Blood Pressure 119/72 04/10/2019 10:15 AM CDT Pulse 100 04/10/2019 10:59 AM CDT Temperature 37.1 C (98.8 F) 04/10/2019 7:09 AM CDT Respiratory Rate 20 04/10/2019 10:59 AM CDT Oxygen Saturation 98% 04/10/2019 10:59 AM CDT Inhaled Oxygen Concentration - - Weight 111.5 kg (245 lb 12.8 oz) 04/10/2019 4:00 AM CDT Height 172.7 cm (5' 8") 04/05/2019 5:17 AM CDT Body Mass Index 37.37 04/05/2019 5:17 AM CDT documented in this encounter Discharge Instructions AttachmentsThe following attachments cannot be sent through Care Everywhere.Eating Heart-Healthy Foods (Georgian)Surgical Site Infections, Preventing (Georgian)Incision Care: Chest (Georgian)documented in this encounter Progress Notes Elayne Street RN - 04/10/2019 12:55 PM CDTCare Coordinator Note: CC received update from [facility] [address] [place] [address] PH: [phone] stating they will not be able to provide home health services to patient. New Referral sent to [facility] [address] [place] [address] (Ph) [phone] (F) [phone]. CC to f/u and see if [facility] will be able to accept patient and insurance. Elayne ABEBE, RN Patient Scheduler, Care Management Dept. [email or web address] (O) [phone] (C) [phone] (not for patient use) Elayne Herrera RN - 04/10/2019 8:14 AM CDTCare Coordinator Note: CC received notification from [facility] [address] [facility] [address], [place], [place] F: [phone] that they are not in network with patient's insurance for DME. Referral and order sent to [facility] [address] [place], [place] fax [phone] check benefits. CC to f/u with [facility] later today. UPDATE @ 1200 [facility] delivered rolling walker to patient's room. Elayne ABEBE, RN Patient Scheduler, Care Management Dept. [email or web address] (O) [phone] (C) [phone] (not for patient use) Elayne Herrera RN - 04/09/2019 5:02 PM CDTCare Coordinator Note: CC met with patient at bedside to discuss Physical Therapy recommendations for Rolling Walker. Obtained choice to [facility] [address], [place], [place] F: [phone] for Rolling Walker. Sent referral to [facility] and requested morning delivery before patient discharges from hospital. CC spoke with patient regarding Home Health, provided patient with Home Health options on his insurance plan. Ref[facility] to [facility] [place] [address] PH: [phone] to run insurance and verify benefits. CC to f/u tomorrow morning on DME and referrals. Elayne ABEBE, RN Patient Scheduler, Care Management Dept. [email or web address] (O) [phone] (C) [phone] (not for patient use) be, Blade Pandya, PT - 04/09/2019 1:30 PM CDT Physical Therapy Progress Note: Recommendations: -Primary Discharge Plan: Same as prior living situation with family support and assitance as needed,Home health PT Equipment recommendations: Rolling Walker PAIN: -Pain Description: constant -Pain Location: sternum -Pain rating before treatment: 5, After treatment: 6 -Pain Management: Nursing Notified PRECAUTIONS: Weight Bearing Precaution: WBAT General Precautions: General, Fall and Sternal Bracing/Cast present or required:N/A S: Patient agreeable to working with PT. O: Patient met Up in chair. Patient seen for the following: Bed mobility: - Sit to supine: Minimal assist with verbal cues with head of bed elevated and assistance for lower extremity Transfers: - -Sit to stand: Modified independent using liven good walker -Stand to sit: Modified independent using no device -verbal cues provided for technique Gait: - Assisted patient with ambulation as follows: 325 feet using liven good walker and Modified independent -cued for postural correction. patient need ~ 3 rest break secondary to shortness of breath Therapeutic exercise: - Instructed patient in the following therapeutic exercises for: ankle pumps, long arc quads After session, patient Semi reclined in bed and call palmer provided. Patient provided with preferred teaching of verbal information on benefits of therapy . Shows readiness to learn. Verbal instruction teaching provided. Individual verbalizes understanding of teaching provided. A:. Patient tolerated session well and progressing toward goals As expected. . Patient continues tobenefit from acute care PT services to address the following : Decline in bed mobility, Decline in gait, Decline in transfers, Decreased strength, Decreased endurance, Decreased balance and Pain. P: Continue to follow for: Decline in bed mobility, Decline in gait, Decline in transfers, Decreasedstrength, Decreased endurance and Decreased balance. PT will progress. Total Timed Tx Codes in Minutes: 25 Min Total Treatment Time in Minutes: 25 Min Blade Smith PT, DPT Pager Number: [phone] Nano Whalen MD - 04/09/2019 11:01 AM CDT DAILY PROGRESS NOTE Date of Service: 04/09/2019 Days post surgery: 4 PCP: Edward Webber Jr. Is 64 year old male PMH of HTN, HLD, TE, borderline MD, hospitalized for CABGx2,. He was ambulating well and pain controlled after surgery. Yesterday he had increased shortness of breath with ambulation, however , no changes in O2 saturation. Over the last 24 hours: he has continued to improve in terms tolerating diet and pain control. He isslightly hesitate on returning home due to his shortness of breath and elevated heart rate. Patient reports significant jump in heart rate when ambulating or even moving to siting position in bed. PT to assess him this AM again regarding ambulation and functional status. REVIEW OF SYSTEMS Post operative patient- Yes Procedures in the last 24 hours: none PHYSICAL EXAM Vitals: Weight (admit): 106.5 BP 132/78 | Pulse 114 | Temp 36.5 C (97.7 F) (Skin) | Resp 18 | Ht 1.727 m (5' 8") | Wt 111.6 kg (246 lb 1.6 oz) | SpO2 97% | BMI 37.42 kg/m Patient awake and alert. Hemodynamics: satisfactory Cardiac rhythm and rate:SR Rate- slightly tachycardic 100s Pulmonary Status: breathing comfortably Renal: adequate: Yes Gastrointestinal: Abdomen- palpation: soft, non tender Wounds: clean, intract. Slight oozing from bilateral thigh incisions, and inferior chest wound Extremities (lower): edema - trace. LABS HCT (%) Date Value 04/07/2019 22.0 (L) 04/06/2019 25.1 (L) 03/26/2010 46.2 03/05/2008 46.0 HEMATOCRIT-Q (%) Date Value 08/13/2014 47.5 03/13/2014 46.3 HGB Date Value 04/07/2019 7.2 g/dL (L) 04/06/2019 8.6 g/dL (L) 03/26/2010 15.8 G/DL 03/05/2008 15.7 G/DL HEMOGLOBIN-Q (g/dL) Date Value 08/13/2014 16.2 03/13/2014 15.2 PROTIME PATIENT (Seconds) Date Value 03/15/2019 12.5 APTT Patient (Seconds) Date Value 03/15/2019 24 NA Date Value 04/07/2019 133 mmol/L (L) 03/26/2010 141 MMOL/L SODIUM-Q (mmol/L) Date Value 08/13/2014 139 K Date Value 04/07/2019 4.4 mmol/L 03/26/2010 4.6 MMOL/L POTASSIUM-Q (mmol/L) Date Value 08/13/2014 4.8 CL Date Value 04/07/2019 98 mmol/L 03/26/2010 105 MMOL/L CHLORIDE-Q (mmol/L) Date Value 08/13/2014 102 HCO3 (mEq/L) Date Value 04/05/2019 22 BUN Date Value 04/07/2019 18 mg/dL 03/26/2010 12 MG/DL UREA NITROGEN (BUN)-Q (mg/dL) Date Value 08/13/2014 12 CREATININE Date Value 04/07/2019 0.96 mg/dL 03/26/2010 0.83 MG/DL CREATININE-Q (mg/dL) Date Value 08/13/2014 0.79 CK (U/L) Date Value 03/16/2018 116 CK-MB (ng/mL) Date Value 03/16/2018 1.11 CALCIUM Date Value 04/07/2019 7.9 mg/dL (L) 03/26/2010 9.1 MG/DL CALCIUM-Q (mg/dL) Date Value 08/13/2014 9.8 No results found for: MG The labs are acceptable given the patient's condition and do not require intervention or further study. RADIOLOGY Chest Xray: none No new Radiology MEDICATIONS Admission Medications Medications Prior to Admission Medication Sig Dispense Refill Last Dose ROSUVASTATIN 20 mg tablet TAKE 1 TABLET BY MOUTH EVERYDAY AT BEDTIME 90 tablet 1 lisinopril 40 mg tablet Take 1 tablet by mouth daily. 90 tablet 3 04/03/2019 aspirin 81 mg chewable tablet Take 1 tablet by mouth daily. 90 tablet 3 04/04 METOPROLOL SUCCINATE XL 50 mg 24 hr tablet TAKE 1 TABLET BY MOUTH EVERY DAY 90 tablet 1 04/04/2019 peg-electrolyte soln 236-22.74-6.74 -5.86 gram solution Take as directed before colonoscopy 4000mL 0 nitroglycerin 0.[address] 1 tablet under the tongue every 5 (five) minutes as needed for Chest pain. 1 Bottle 5 prn Current Medications Current Facility-Administered Medications Medication Dose Route Frequency Last Rate Last Dose metoprolol tartrate (LOPRESSOR) tablet 50 mg 50 mg Oral Q12H 50 mg at 0855 ipratropium-albuterol (DUONEB) 0.5 mg-3 mg(2.5 mg base)/3 mL nebulizer solution 3 mL 3 mL Inhalation QID 3 mL at 04/09/19 1041 NaCl 0.9% (NS) injection 5 mL 5 mL Slow IV Push PRN - SEE INSTRUCTIONS acetaminophen (TYLENOL) tablet 650 mg 650 mg Oral Q6HPRN acetaminophen-codeine (TYLENOL #3) 300-30 mg tablet 1 tablet 1 tablet Oral Q6HPRN 1 tablet at04/09/19 0855 acetaminophen-codeine (TYLENOL #3) 300-30 mg tablet 2 tablet 2 tablet Oral Q4HPRN 2 tablet at04/09/19 0158 aspirin chewable tablet 81 mg 81 mg Oral DAILY 81 mg at 04/09/19 0855 bisacodyl (DULCOLAX) suppository 10 mg 10 mg Rectal PRN - SEE INSTRUCTIONS ferrous sulfate tablet 325 mg 325 mg Oral BID MEALS 325 mg at 04/09/19 0855 furosemide (LASIX) tablet 20 mg 20 mg Oral QAM+PM 20 mg at 04/09/19 0855 glucagon (GLUCAGEN DIAGNOSTIC KIT) injection 1 mg 1 mg Intramuscular PRN heparin injection 5,000 Units 5,000 Units Subcutaneous BID 5,000 Units at 04/08/19 205 Sliding Scale Insulin - Aspart (NOVOLOG) + Fsbg Testing Subcutaneous TID MEALS+HS Stopped at04/08/19 1700 sodium phosphates (FLEET ENEMA) 19-7 gram/118 mL enema 1 Enema 1 Enema Rectal PRN - SEE INSTRUCTIONS spironolactone (ALDACTONE) tablet 25 mg 25 mg Oral DAILY 25 mg at 0855 docusate (COLACE) capsule 100 mg 100 mg Oral DAILY Stopped at 04/09/19 0900 naloxone (NARCAN) injection 0.1 mg 0.1 mg Slow IV Push SEE-INSTRUCTIONS rosuvastatin (CRESTOR) tablet 20 mg 20 mg Oral QHS 20 mg at 04/08/19 2045 sennosides (SENOKOT) tablet 8.6 mg 8.6 mg Oral DAILY Stopped at 04/09/19 0900 DIAGNOSIS/ PLAN: Dieudonne Webber Jr. is a 64 year old male PMH of HTN, HLD, TE, borderline DM , hospitalized for CABG x2. Slightly tachycardic, and increased SOB with ambulation - Ambulate and monitor HR - Tachycardia: increased metoprolol dose to 50 mg BID, as BP is also slightly elevated - PT evaluation - Possible discharge home today Nano Puga MD Plastic Surgery, PGY-1 SCT Pager [phone] Associated attestation - Hernan Menchaca Jr., MD - 04/09/2019 11:12 AM CDTMrJuan was seen and examined on rounds today with Dr. Puga. His findings are as noted on the resident's progress note, his current problems include: Principal Problem: Coronary artery disease involving mechoopda coronary artery of mechoopda heart with other form of anginapectoris Active Problems: TE on CPAP Hyperlipidemia HTN (hypertension) Former smoker Borderline diabetes S/P CABG x 2 on 04/05/2019 I actively participated in the decision-making process. Please see the resident's note for additional details. Ksenia Brewster MD - 04/08/2019 11:31 AM CDT DAILY PROGRESS NOTE Date of Service: 04/08/19 Day of surgery: 04/05/2019 CABG x2 (WINTERS to LAD, SVG to PDA) PCP: Edward Webber Jr. is a 64 year old male, PMH of HTN, HLD, TE, borderline DM , hospitalized for CABG x2. Patient ambulated yesterday, feels more dyspnea today. REVIEW OF SYSTEMS Post operative patient- Yes Procedures in the last 24 hours: chest xray: abnormal but satisfactory post- operative PHYSICAL EXAM Vitals: Weight (admit): 106.5 BP 106/69 | Pulse 108 | Temp 36.8 C (98.2 F) (Skin) | Resp 16 | Ht 1.727 m (5' 8") | Wt 112.9 kg (248 lb 12.8 oz) | SpO2 96% | BMI 37.83 kg/m Intake/Output Summary (Last 24 hours) at 04/08/2019 1133 Last data filed at 04/08/2019 0711 Gross per 24 hour Intake 997.5 ml Output 900 ml Net 97.5 ml Weight change: 0.272 kg (9.6 oz) .weight Patient awake and alert. Hemodynamics: satisfactory Cardiac rhythm and rate:SR Rate- Regular Pulmonary Status: mild tachypnea, coarse BS Renal: adequate: Yes Gastrointestinal: Abdomen- palpation: soft, non tender Wounds: clean, dry and intact Extremities (lower): edema - 1+ LABS CBC WBC x10^3 (/CMM) Date Value 03/26/2010 7.3 WHITE BLOOD CELL COUNT-Q (Thousand/uL) Date Value 08/13/2014 9.0 WBC (10*3/L) Date Value 04/07/2019 15.26 (H) RBC x10^6 (/CMM) Date Value 03/26/2010 5.19 RED BLOOD CELL COUNT-Q (Million/uL) Date Value 08/13/2014 5.36 RBC (10*6/L) Date Value 04/07/2019 2.41 (L) PLT x10^3 (/CMM) Date Value 03/26/2010 186 PLATELET COUNT-Q (Thousand/uL) Date Value 08/13/2014 157 PLT (10*3/L) Date Value 04/07/2019 82 (L) HGB Date Value 04/07/2019 7.2 g/dL (L) 03/26/2010 15.8 G/DL HEMOGLOBIN-Q (g/dL) Date Value 08/13/2014 16.2 HCT (%) Date Value 04/07/2019 22.0 (L) 03/26/2010 46.2 HEMATOCRIT-Q (%) Date Value 08/13/2014 47.5 BMP NA Date Value 04/07/2019 133 mmol/L (L) 03/26/2010 141 MMOL/L SODIUM-Q (mmol/L) Date Value 08/13/2014 139 K Date Value 04/07/2019 4.4 mmol/L 03/26/2010 4.6 MMOL/L POTASSIUM-Q (mmol/L) Date Value 08/13/2014 4.8 CALCIUM Date Value 04/07/2019 7.9 mg/dL (L) 03/26/2010 9.1 MG/DL CALCIUM-Q (mg/dL) Date Value 08/13/2014 9.8 CL Date Value 04/07/2019 98 mmol/L 03/26/2010 105 MMOL/L CHLORIDE-Q (mmol/L) Date Value 08/13/2014 102 BUN Date Value 04/07/2019 18 mg/dL 03/26/2010 12 MG/DL UREA NITROGEN (BUN)-Q (mg/dL) Date Value 08/13/2014 12 CREATININE Date Value 04/07/2019 0.96 mg/dL 03/26/2010 0.83 MG/DL CREATININE-Q (mg/dL) Date Value 08/13/2014 0.79 GLUCOSE Date Value 04/07/2019 169 mg/dL (H) 03/26/2010 100 MG/DL GLUCOSE-Q (mg/dL) Date Value 08/13/2014 88 CO2 TOTAL Date Value 04/07/2019 31 mmol/L 03/26/2010 25 MMOL/L CARBON DIOXIDE-Q (mmol/L) Date Value 08/13/2014 29 No results found for: MG The labs are acceptable given the patient's condition and do not require intervention or further study. RADIOLOGY Chest Xray: abnormal but satisfactory post-operative No new Radiology except chest xray and/or ct scan MEDICATIONS Admission Medications Medications Prior to Admission Medication Sig Dispense Refill Last Dose ROSUVASTATIN 20 mg tablet TAKE 1 TABLET BY MOUTH EVERYDAY AT BEDTIME 90 tablet 1 lisinopril 40 mg tablet Take 1 tablet by mouth daily. 90 tablet 3 04/03/2019 aspirin 81 mg chewable tablet Take 1 tablet by mouth daily. 90 tablet 3 04/04 METOPROLOL SUCCINATE XL 50 mg 24 hr tablet TAKE 1 TABLET BY MOUTH EVERY DAY 90 tablet 1 04/04/2019 peg-electrolyte soln 236-22.74-6.74 -5.86 gram solution Take as directed before colonoscopy 4000mL 0 nitroglycerin 0.[address] 1 tablet under the tongue every 5 (five) minutes as needed for Chest pain. 1 Bottle 5 prn Current Medications Current Facility-Administered Medications Medication Dose Route Frequency Last Rate Last Dose ipratropium-albuterol (DUONEB) 0.5 mg-3 mg(2.5 mg base)/3 mL nebulizer solution 3 mL 3 mL Inhalation QID 3 mL at 04/08/19 1111 NaCl 0.9% (NS) injection 5 mL 5 mL Slow IV Push PRN - SEE INSTRUCTIONS acetaminophen (TYLENOL) tablet 650 mg 650 mg Oral Q6HPRN acetaminophen-codeine (TYLENOL #3) 300-30 mg tablet 1 tablet 1 tablet Oral Q6HPRN 1 tablet at04/07/19 1928 acetaminophen-codeine (TYLENOL #3) 300-30 mg tablet 2 tablet 2 tablet Oral Q4HPRN 2 tablet at04/08/19 1042 aspirin chewable tablet 81 mg 81 mg Oral DAILY 81 mg at 04/08/19 0730 bisacodyl (DULCOLAX) suppository 10 mg 10 mg Rectal PRN - SEE INSTRUCTIONS ferrous sulfate tablet 325 mg 325 mg Oral BID MEALS 325 mg at 04/08/19 0730 furosemide (LASIX) tablet 20 mg 20 mg Oral QAM+PM 20 mg at 04/08/19 0737 glucagon (GLUCAGEN DIAGNOSTIC KIT) injection 1 mg 1 mg Intramuscular PRN heparin injection 5,000 Units 5,000 Units Subcutaneous BID 5,000 Units at 04/08/19 0738 metoprolol tartrate (LOPRESSOR) tablet 25 mg 25 mg Oral Q12H 25 mg at 0737 Sliding Scale Insulin - Aspart (NOVOLOG) + Fsbg Testing Subcutaneous TID MEALS+HS 1 Units at04/08/19 0737 sodium phosphates (FLEET ENEMA) 19-7 gram/118 mL enema 1 Enema 1 Enema Rectal PRN - SEE INSTRUCTIONS spironolactone (ALDACTONE) tablet 25 mg 25 mg Oral DAILY 25 mg at 0730 docusate (COLACE) capsule 100 mg 100 mg Oral DAILY 100 mg at 04/08/19 0730 naloxone (NARCAN) injection 0.1 mg 0.1 mg Slow IV Push SEE-INSTRUCTIONS rosuvastatin (CRESTOR) tablet 20 mg 20 mg Oral QHS 20 mg at 04/07/19 1928 sennosides (SENOKOT) tablet 8.6 mg 8.6 mg Oral DAILY 8.6 mg at 04/08/19 0730 DIAGNOSIS/ PLAN: Dieudonne Webber Jr. is a 64 year old male PMH of HTN, HLD, TE, borderline DM , hospitalized for CABG x2. Dyspnea today, poor inspiratory effort, increased weight/peripheral edema Additional lasix this morning Continue to ambulate PO pain control IS For questions please contact the CT Surgery pager: Ksenia Brewster MD Cardiothoracic Surgery Fellow 04/08/19 11:35 AM Associated attestation - Hernan Menchaca Jr., MD - 04/09/2019 7:11 AM CDTMrJuan was seen and examined on rounds today with Dr. Brewster. His findings are as noted on the resident's progress note, his current problems include: Principal Problem: Coronary artery disease involving mechoopda coronary artery of mechoopda heart with other form of anginapectoris Active Problems: TE on CPAP Hyperlipidemia HTN (hypertension) Former smoker Borderline diabetes S/P CABG x 2 on 04/05/2019 I actively participated in the decision-making process. Please see the resident's note for additional details. Nano Puga MD - 04/07/2019 12:50 PM CDT DAILY PROGRESS NOTE Date of Service: 04/07/2019 Days post surgery: 2 PCP: Edward Pelaez Dieudonne Webber Jr. is a 64 year old male, PMH of HTN, HLD, TE, borderline DM , hospitalized for CABG x2. Within the last 24 hours, patient's condition has improved. Transferred to the floor. Pain iscontrolled. REVIEW OF SYSTEMS Post operative patient- Yes Procedures in the last 24 hours: chest xray: abnormal but satisfactory post- operative PHYSICAL EXAM Vitals: Weight (admit): 106.5 BP 111/52 | Pulse 104 | Temp 36.6 C (97.9 F) (Skin) | Resp 20 | Ht 1.727 m (5' 8") | Wt 112.6 kg (248 lb 3.2 oz) | SpO2 90% | BMI 37.74 kg/m Intake/Output Summary (Last 24 hours) at 04/07/2019 1433 Last data filed at 04/07/2019 1316 Gross per 24 hour Intake 401.5 ml Output 895 ml Net -493.5 ml Patient awake and alert. Hemodynamics: satisfactory Cardiac rhythm and rate:SR Rate- Regular Pulmonary Status: breathing comfortably Renal: adequate: Yes Gastrointestinal: Abdomen- palpation: soft, non tender Wounds: clean, dry and intact Extremities (lower): edema - none. LABS HCT (%) Date Value 04/07/2019 22.0 (L) 04/06/2019 25.1 (L) 03/26/2010 46.2 03/05/2008 46.0 HEMATOCRIT-Q (%) Date Value 08/13/2014 47.5 03/13/2014 46.3 HGB Date Value 04/07/2019 7.2 g/dL (L) 04/06/2019 8.6 g/dL (L) 03/26/2010 15.8 G/DL 03/05/2008 15.7 G/DL HEMOGLOBIN-Q (g/dL) Date Value 08/13/2014 16.2 03/13/2014 15.2 PROTIME PATIENT (Seconds) Date Value 03/15/2019 12.5 APTT Patient (Seconds) Date Value 03/15/2019 24 NA Date Value 04/07/2019 133 mmol/L (L) 03/26/2010 141 MMOL/L SODIUM-Q (mmol/L) Date Value 08/13/2014 139 K Date Value 04/07/2019 4.4 mmol/L 03/26/2010 4.6 MMOL/L POTASSIUM-Q (mmol/L) Date Value 08/13/2014 4.8 CL Date Value 04/07/2019 98 mmol/L 03/26/2010 105 MMOL/L CHLORIDE-Q (mmol/L) Date Value 08/13/2014 102 HCO3 (mEq/L) Date Value 04/05/2019 22 BUN Date Value 04/07/2019 18 mg/dL 03/26/2010 12 MG/DL UREA NITROGEN (BUN)-Q (mg/dL) Date Value 08/13/2014 12 CREATININE Date Value 04/07/2019 0.96 mg/dL 03/26/2010 0.83 MG/DL CREATININE-Q (mg/dL) Date Value 08/13/2014 0.79 CK (U/L) Date Value 03/16/2018 116 CK-MB (ng/mL) Date Value 03/16/2018 1.11 CALCIUM Date Value 04/07/2019 7.9 mg/dL (L) 03/26/2010 9.1 MG/DL CALCIUM-Q (mg/dL) Date Value 08/13/2014 9.8 No results found for: MG The labs are acceptable given the patient's condition and do not require intervention or further study. RADIOLOGY Chest Xray: abnormal but satisfactory post-operative No new Radiology except chest xray and/or ct scan MEDICATIONS Admission Medications Medications Prior to Admission Medication Sig Dispense Refill Last Dose ROSUVASTATIN 20 mg tablet TAKE 1 TABLET BY MOUTH EVERYDAY AT BEDTIME 90 tablet 1 lisinopril 40 mg tablet Take 1 tablet by mouth daily. 90 tablet 3 04/03/2019 aspirin 81 mg chewable tablet Take 1 tablet by mouth daily. 90 tablet 3 04/04 METOPROLOL SUCCINATE XL 50 mg 24 hr tablet TAKE 1 TABLET BY MOUTH EVERY DAY 90 tablet 1 04/04/2019 peg-electrolyte soln 236-22.74-6.74 -5.86 gram solution Take as directed before colonoscopy 4000mL 0 nitroglycerin 0.[address] 1 tablet under the tongue every 5 (five) minutes as needed for Chest pain. 1 Bottle 5 prn Current Medications Current Facility-Administered Medications Medication Dose Route Frequency Last Rate Last Dose acetaminophen (TYLENOL) tablet 650 mg 650 mg Oral Q6HPRN acetaminophen-codeine (TYLENOL #3) 300-30 mg tablet 1 tablet 1 tablet Oral Q6HPRN 1 tablet at04/07/19 0454 acetaminophen-codeine (TYLENOL #3) 300-30 mg tablet 2 tablet 2 tablet Oral Q4HPRN 2 tablet at04/07/19 1053 aspirin chewable tablet 81 mg 81 mg Oral DAILY 81 mg at 04/07/19 0808 bisacodyl (DULCOLAX) suppository 10 mg 10 mg Rectal PRN - SEE INSTRUCTIONS ferrous sulfate tablet 325 mg 325 mg Oral BID MEALS 325 mg at 04/07/19 0809 furosemide (LASIX) tablet 20 mg 20 mg Oral QAM+PM 20 mg at 04/07/19 0809 glucagon (GLUCAGEN DIAGNOSTIC KIT) injection 1 mg 1 mg Intramuscular PRN heparin injection 5,000 Units 5,000 Units Subcutaneous BID 5,000 Units at 04/07/19 0811 lactated ringers IV infusion 1,000 mL 1,000 mL IV Infusion CONTINUOUS 20 mL /hr at 04/06/19 1259 [START ON 04/08/2019] magnesium hydroxide (MILK OF MAGNESIA) 400 mg/5 mL suspension 30 mL 30 mL Oral ONCE metoprolol tartrate (LOPRESSOR) tablet 25 mg 25 mg Oral Q12H 25 mg at 0809 Sliding Scale Insulin - Aspart (NOVOLOG) + Fsbg Testing Subcutaneous TID MEALS+HS 1 Units at04/07/19 1206 sodium phosphates (FLEET ENEMA) 19-7 gram/118 mL enema 1 Enema 1 Enema Rectal PRN - SEE INSTRUCTIONS spironolactone (ALDACTONE) tablet 25 mg 25 mg Oral DAILY 25 mg at 0808 docusate (COLACE) capsule 100 mg 100 mg Oral DAILY 100 mg at 04/07/19 08 naloxone (NARCAN) injection 0.1 mg 0.1 mg Slow IV Push SEE-INSTRUCTIONS rosuvastatin (CRESTOR) tablet 20 mg 20 mg Oral QHS 20 mg at 04/06/192024 sennosides (SENOKOT) tablet 8.6 mg 8.6 mg Oral DAILY 8.6 mg at 04/07/19 08 DIAGNOSIS/ PLAN: Dieudonne Webber JrNorah is a 64 year old male PMH of HTN, HLD, TE, borderline DM , hospitalized for CABG x2. Continues to improve - Ambulate - Encourage IS - Pain controlled, Fentanyl EMPLOYEE RELATIONS DIRECTOR discontinued today, transition to orals - If pain controlled with orals, possible discharge home tomorrow Nano Puga MD Plastic Surgery, PGY-1 [facility] Pager [phone] Associated attestation - Hernan Menchaca Jr., MD - 04/08/2019 10:30 AM CDTMr.Akbar was seen and examined on rounds today with Dr. Puga. His findings are as noted on the resident's progress note, his current problems include: Principal Problem: Coronary artery disease involving mechoopda coronary artery of mechoopda heart with other form of anginapectoris Active Problems: TE on CPAP Hyperlipidemia HTN (hypertension) Former smoker Borderline diabetes S/P CABG x 2 on 04/05/2019 I actively participated in the decision-making process. Please see the resident's note for additional details. [place], BHAVYA Caba - 04/06/2019 9:26 AM CDTCare Management Social Functional Assessment Patient Name: Dieudonne Webber Jr. Age: [age] year old Sex: male Previous admit date: N/A Current diagnosis and co-morbidities: Coronary artery disease involving mechoopda coronary artery 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 [I25.118] Readmission Questions: Was patient discharged from any acute care hospital within the last 30 days: No Social Functional Assessment: Primary language spoken/preferred: Georgian Mental Status: Alert & Oriented to Person,Place & Time Information given by: Self Patient's support system: Spouse Name and number of support system: Ondina Webber () [phone] Primary Security Project Manager: Self MPOA: No Living Arrangement: Home Address of living arrangement : [address] [place] [address], [id number] Persons living in home: Same as support system Barriers to returning home: None Baseline functional status- ambulation: Independent Functional status-baseline personal care: Independent Baseline functional status- driving: Independent Baseline functional status- grocery shopping: Independent Functional status-baseline housekeeping: Independent Functional status-baseline meal prep: Independent Current functional status same as prior: Yes Do you have a PCP?: Yes Name of PCP: Milo Pelaez MD [phone] Home Health Care Agency: No Provider Services: No Equipment: Shower Chair;Other Other equipment: CPAP machine from [facility] Hemodialysis: No Community resources utilized: None Funding Resources: Commercial([employer] ) Prescription coverage plan: Commercial([employer]ET[employer]) Pharmacy where meds are filled: Other Other pharmacy: [facility] in [place] off of [address] Anticipated services prior to disharge: Continue Medical Eval Expected mode of discharge transportation: Same as support system Additional Recommendations for DC: pt lives at home independently and retired with in [place]. Has a shower chair and cpap machine at home. Insurance coverage through [employer], is able to affordall current medications. Will ride home with upon time of discharge. Additional info required for discharge planning: Pending medical evaluation Recommended discharge plan: Home SFA Complete: Social Functional Assessment complete: Yes Alcohol Use Screening (AUDIT-C) How often do you have a drink containing alcohol?: Monthly or less SCORE: 1 How many drinks containing alcohol do you have on a typical day when you are drinking?: 1 or 2 drinks How often do you have six or more drinks on one occasion?: Never Total Score (AUDIT-C): 1 Did patient elect to have resources provided: No Role of Care Management explained. Rosales ABEBE, RN, CCRN Patient Scheduler [facility] Care Management [email or web address] [phone] Vivienne Roberson - 04/06/2019 8:29 AM CDT Cardiothoracic Surgery - ICU Progress Note Patient Name: Dieudonne Webber Jr. is a 64 year old male Date of : 1955 Date of Service: 04/06/2019 Days post surgery: 1 Procedure: CABGx2 CC: feel pretty good Dieudonne Webber Jr. is a 64 year old male with HTN, HLD, TE, borderline DM hospitalized for CABG x 2 . Patient's condition is satisfactory. Within the last 24 hours, patient's condition has improved. Significant events: None. Patient awake and alert. Extubated. Off pressors. Adequate pain control. Procedures in the last 24 hours: chest X-ray: The endotracheal tube and a left chest tube were removed. A mediastinal drain and the right chest tube remain, and the tip of the Carroll-Bella catheter is in the main pulmonary artery. The heart and great vessels are normal. The lungs are poorly expanded, and the left is mildly congested ASSESSMENT Cardiovascular: Cardiac rhythm and rate: SR Rate- 110s Cardiac valve sounds and murmurs: no murmur Hemodynamic state: good Systemic arterial pressure (BP): Systolic:132, mAP 70-80s Cardiac Index: 3.5 Right (CVP): 5 Pulmonary artery systolic and diastolic pressures: 21/11 Sternal incision c/d/i. BLE incision c/d/i. Peripheral skin temperature: warm PULMONARY STATUS Vent Settings: Extubated: breathing comfortably Arterial Blood Gas result: PH (no units) Date Value 04/05/2019 7.34 (L) PCO2 (mmHg) Date Value 04/05/2019 41 PO2 (mmHg) Date Value 04/05/2019 174 (H) %O2HB (%) Date Value 04/05/2019 97.6 K+ (mmol/L) Date Value 04/05/2019 4.6 %O2 Sat 100. Auscultation: diminished at bases Chest tube output: 535cc Air leak: continuous air leak on suction. No air leak on water seal. Connections tightened with small improvement in air leak Renal Function: In/Out: 9927 / 2375 Urine output: good, 1840 cc Metabolic: Temperature max: 38.4 Temperature current: 38.2 Neurologic: no neurologic deficit evident Movement of extremities: all extremeties move normally Gastrointestinal: Abdomen: soft, non tender, non distended P.O. Intake: NPO Bowel movements: no LABS Results for DONNA WEBBERJean-PierreSOO Godoy ( ) as of 04/06/2019 09:29 Ref. Range 04/06/2019 04:58 WBC x10^3 Latest Ref Range: 4.20 - 10.70 10*3/L 13.04 (H) HGB Latest Ref Range: 12.2 - 16.4 g/dL 8.6 (L) HCT Latest Ref Range: 38.4 - 49.3 % 25.1 (L) PLT x10^3 Latest Ref Range: 150 - 328 10*3/L 89 (L) Results for DONNA WEBBERJean-PierreSOO Godoy ( ) as of 04/06/2019 09:29 Ref. Range 04/06/2019 04:58 NA Latest Ref Range: 135 - 145 mmol/L 132 (L) K Latest Ref Range: 3.5 - 5.0 mmol/L 4.8 CL Latest Ref Range: 98 - 108 mmol/L 101 CO2 TOTAL Latest Ref Range: 23 - 31 mmol/L 28 AGAP Latest Ref Range: 2 - 16 3 BUN Latest Ref Range: 7 - 23 mg/dL 18 GLUCOSE Latest Ref Range: 70 - 110 mg/dL 193 (H) CREATININE Latest Ref Range: 0.60 - 1.25 mg/dL 1.07 eGFR CALCULATION (non ) Latest Units: mL/min/1.73m2 69.6 eGFR CALCULATION () Latest Units: mL/min/1.73m2 84.3 CALCIUM Latest Ref Range: 8.6 - 10.6 mg/dL 7.8 (L) Labs Reviewed I have reviewed the patient's labs. Hgb 8.6, plt 89. Admission Medications No current facility-administered medications on file prior to encounter. Current Outpatient Medications on File Prior to Encounter Medication Sig Dispense Refill ROSUVASTATIN 20 mg tablet TAKE 1 TABLET BY MOUTH EVERYDAY AT BEDTIME 90 tablet 1 lisinopril 40 mg tablet Take 1 tablet by mouth daily. 90 tablet 3 aspirin 81 mg chewable tablet Take 1 tablet by mouth daily. 90 tablet 3 METOPROLOL SUCCINATE XL 50 mg 24 hr tablet TAKE 1 TABLET BY MOUTH EVERY DAY 90 tablet 1 peg-electrolyte soln 236-22.74-6.74 -5.86 gram solution Take as directed before colonoscopy 4000mL 0 nitroglycerin 0.[address] 1 tablet under the tongue every 5 (five) minutes as needed for Chest pain. 1 Bottle 5 Current Medications Current Facility-Administered Medications Medication Dose Route Frequency Last Rate Last Dose lactated ringers IV infusion 1,000 mL 1,000 mL IV Infusion CONTINUOUS 50 mL /hr at 04/06/19 0615 metoprolol tartrate (LOPRESSOR) tablet 25 mg 25 mg Oral BID acetaminophen (TYLENOL) suppository 650 mg 650 mg Rectal Q6HPRN acetaminophen (TYLENOL) tablet 650 mg 650 mg Oral Q6HPRN acetaminophen-codeine (TYLENOL #3) 300-30 mg tablet 1 tablet 1 tablet Oral Q6HPRN 1 tablet at04/06/19 0743 aspirin chewable tablet 81 mg 81 mg Oral DAILY 81 mg at 04/06/19 0743 ceFAZolin (ANCEF) 1 g in NaCl 0.9% (NS) 1,000 mL OR irrigation PRN 1, 000 mL at 04/05/19 0836 docusate (COLACE) capsule 100 mg 100 mg Oral DAILY 100 mg at 04/06/19 0743 FENTanyl EMPLOYEE RELATIONS DIRECTOR (5 mcg/mL NS) 300 mcg Intravenous CONTINUOUS 300 mcg at 1807 furosemide (LASIX) injection 20 mg 20 mg IV Push PRN glucagon (GLUCAGEN DIAGNOSTIC KIT) injection 1 mg 1 mg Intramuscular PRN heparin 1,000 unit/mL 2,500 Units, papaverine 60 mg in NaCl 0.9% (NS) 100 mL OR irrigation PRN 100 mL at 04/05/19 0835 heparin 1,000 unit/mL 30,000 Units in NaCl 0.9% (NS) 1,000 mL OR irrigation PRN 1,000 mL at04/05/19 0837 heparin 1,000 unit/mL 5,000 Units, papaverine 30 mg in NaCl 0.9% (NS) 500 mL OR irrigation PRN 500 mL at 04/05/19 0836 heparin injection 5,000 Units 5,000 Units Subcutaneous Q12H 5,000 Units at 04/06/19 0743 insulin regular human (HUMULIN R) 100 Units in D5W 100 mL infusion 2 Units/ hr IV Infusion TITRATE NaCl 0.9% (NS) bolus infusion 250 mL 250 mL IV Infusion PRN - SEE INSTRUCTIONS naloxone (NARCAN) injection 0.1 mg 0.1 mg Slow IV Push SEE-INSTRUCTIONS NORepinephrine (LEVOPHED) 4 mg in D5W 250 mL infusion 0.05 mcg/kg/min IV Infusion TITRATE Stopped at 04/06/19 0420 propofol injection 35 mcg/kg/min IV Infusion TITRATE rosuvastatin (CRESTOR) tablet 20 mg 20 mg Oral QHS 20 mg at 04/05/19 2128 sennosides (SENOKOT) tablet 8.6 mg 8.6 mg Oral DAILY 8.6 mg at 04/06/19 0743 Assessment and Plan: Dieudonne Webber Jr. is a 64 year old male with HTN, HLD, TE, borderline DM s/p CABGx2 pod#1 with good hemodynamics. Off pressors. Extubated and breathing comfortably. Acute postop blood loss anemia. - justin saldana foley, aline - OOB to chair - d/c chest tubes if output meets criteria after OOB to chair - no transfusion at this time - ferrous sulfate 325mg bid meals - lasix 20 mg bid, spironolactone 25mg daily - abx: complete - metoprolol 25 mg q12h - fentanyl laboratory sample carrier, T#3 for pain - statin, ASA - SQ heparin - diabetic protocol - to CTCU - advance diet - IS/cough/deep breathe - TEDs/SCDs - PT/OT consult Jackie YU PA-C Physician Manager Mail, Cardiothoracic Surgery Provider #[id number] Pager [phone] Associated attestation - Hernan Menchaca Jr., MD - 04/06/2019 1:08 PM CDTMrJuan was seen and examined on rounds today. His findings are as noted on Rogers's progressnote, his current problems include: Principal Problem: Coronary artery disease involving mechoopda coronary artery of mechoopda heart with other form of anginapectoris Active Problems: TE on CPAP Hyperlipidemia HTN (hypertension) Former smoker Borderline diabetes S/P CABG x 2 on 04/05/2019 I actively participated in the decision-making process. Please see Ms. Rogers 's note for additional details. Dorothea Amador MD - 04/05/2019 10:26 AM CDT ANESTHESIOLOGY REPORT FROM OPERATING ROOM Patient: Dieudonne Webber Jr. [id number] 64 year old male Situation: Diagnosis: Coronary artery disease involving mechoopda coronary artery 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 [I25.118] Procedure(s): CORONARY ARTERY BYPASS GRAFT Surgical Duration: 5 hours Type of Anesthesia: GA Current Airway: Intubated: yes - 8.0 ETT at 23 cm Background: Dieudonne Webber Jr. has a past medical history of Borderline diabetes, Former smoker, Generalized osteoarthrosis, unspecified site, HTN (hypertension), Hyperlipidemia, and TE on CPAP. Allergies: Patient has no known allergies. Pre-Op medication given: midazolam Code Status: Will be reevaluated in 24 hrs. Intra-operative events/difficulties: none Assessment: Lines: Peripheral IV 04/05/19 0534 Left Hand Ultrasound not used (Active) Site assessment Clean;Dry;Intact 04/05/2019 5:34 AM Line status Blood return;Flushed;Saline Lock 04/05/2019 5:34 AM Line interventions None required 04/05/2019 5:34 AM Dressing status Clean;Dry 04/05/2019 5:34 AM Dressing intervention New 04/05/2019 5:34 AM Reason site not rotated Anticipated discharge 04/05/2019 5:34 AM CVC Single Lumen 04/05/19 Right Internal jugular (Active) CVC Double Lumen 04/05/19 Right Internal jugular (Active) Arterial Line 04/05/19 Right Radial (Active) Difficult Airway: no. DL x1, Mac 3, G2b, 8.0 ETT, 23 cm lips Infusions: Norepinephrine and Ketamine and precedex Drains: Chest tube(s) - 2 Monitors: Routine including A-line, CVP, and PAC Positioning issues and concerns were discussed and addressed, the patient was warmed using an intra-operative warming device to maintain temperature. Muscle relaxants given: rocuronium. Reversal: no Pain medication given: fentanyl, precedex, ketamine Fluids: Fluids Crystalloid: 2500 cc's Colloid: 0 cc's Blood Products PRBCs: 0 units FFP: 0 units PLTS: 0 units Other: Cell Saver 720 mL EBL: 1500 mL Urine output: 200 LAST ABG:: No results found for: ACPH No results found for: ACPCO2 No results found for: ACPO2 No results found for: ACO2HB HGB Date Value 03/15/2019 13.8 g/dL 03/26/2010 15.8 G/DL HEMOGLOBIN-Q (g/dL) Date Value 08/13/2014 16.2 No results found for: ACNA No results found for: ACK No results found for: ACCAIONZ Recommendations: The following tasks were requested by the surgical team: BP goal of MAP >65mmHg CVP goal per primary team Transfusion threshold per primary team Postoperative protocol (cardiac, transplant, neuro) is in place. Other case-specific information: Anesthetic record was presented to and acknowledged by the SICU resident. Questions and concerns were addressed. SICU resident accepted transfer of care. Phoebe Chadwick FNP - 03/26/2019 4:11 PM MCKENNAremedina instructions discussed via phone and email communication with education as below: Attached is a link as well to a short video of what to expect prior, during and shortly after surgery. [email or web address] Instructions before surgery: Do not take your Lisinopril on 04/04/2019 You can continue your baby aspirin (81 mg), just none the morning of surgery No medications to be taken at home the morning of surgery Please purchase Hibiclens (chlorhexidine) antibacterial soap at your local pharmacy. Start showering with this solution 2 days before surgery and the morning of surgery. DO NOT apply on your face. Do not shave any hair off your chest or legs. If needed, we will use special clippers the morning of surgery. Okay to shave your face only. Ensure you have a normal bowel movement the day before surgery. Avoid wvaz-zkk-yftrezl medications that contain aspirin and ibuprofen for at least 5 days prior to surgery. Examples of these medications Aleve, Advil, BC Powder, [place], etc. Avoid jqhf-why-tgrgats herbal medications and fish oil. JORGE Harvey Cardiothoracic Surgery Pager: [phone] Provider # [phone] documented in this encounter Plan of Treatment Date Type Specialty Care Team Description 04/17/2019 Office Visit Surgery Bobbi Marquez MD [address] [facility] [address] [place], [place] [id number] 04/18/2019 Office Visit Thoracic Surgery Hernan Menchaca Jr., MD [address] [place] [address] 08/29/2019 Office Visit Cardiology Wallace Aldana MD [address] [facility] [address] [place], [place] [address] 08/30/2019 Office Visit Internal Medicine Edward Pelaez [address] [place] [address] [phone] 09/10/2019 Office Visit Gastroenterology Pasquale Baca MD [address] [place] [address] [phone] Name Type Priority Associated Diagnoses Date/Time Type and Screen - The LAB Routine Coronary artery disease 04/05/2019 5:28 AM CDT Type and Screen expires involving mechoopda at midnight on the 3rd coronary artery of day after it was drawn. mechoopda heart with other A current Type and form of angina pectoris Screen is required when RBCs are requested. For all other blood products, a Type and Screen performed during the current hospitalizati... Name Type Priority Associated Diagnoses Order Schedule EKG-12 LEAD ROUTINE HEART STATION Routine Coronary artery ONCE for 1 Occurrences disease involving starting 04/05/2019 mechoopda coronary until 04/05/2019 artery 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 EKG-12 LEAD ROUTINE HEART STATION STAT ONCE for 1 Occurrences starting 04/05/2019 until 04/05/2019 EKG-12 LEAD ROUTINE HEART STATION STAT ONCE for 1 Occurrences starting 04/09/2019 until 04/09/2019 Health Maintenance Due Date Last Done Comments [...] encounter Procedures Procedure Name Priority Date/Time Associated Comments Diagnosis BASIC METABOLIC Routine 04/10/2019 4:09 Results for this PANEL (NA, K, CL, AM CDT procedure are in CO2, GLUCOSE, BUN, the results CREATININE, CA) section. BASIC METABOLIC STAT 04/09/2019 9:57 Results for this PANEL (NA, K, CL, PM CDT procedure are in CO2, GLUCOSE, BUN, the results CREATININE, CA) section. MAGNESIUM STAT 04/09/2019 9:57 Results for this PM CDT procedure are in the results section. PHOSPHORUS STAT 04/09/2019 9:57 Results for this PM CDT procedure are in the results section. EKG-12 LEAD Routine 04/09/2019 9:53 PM CDT POCT GLUCOSE Routine 04/09/2019 11:14 Results for this (AUTOMATED) AM CDT procedure are in the results section. POCT GLUCOSE Routine 04/09/2019 7:43 Results for this (AUTOMATED) AM CDT procedure are in the results section. POCT GLUCOSE Routine 04/08/2019 8:08 Results for this (AUTOMATED) PM CDT procedure are in the results section. POCT GLUCOSE Routine 04/08/2019 5:17 Results for this (AUTOMATED) PM CDT procedure are in the results section. POCT GLUCOSE Routine 04/08/2019 11:11 Results for this (AUTOMATED) AM CDT procedure are in the results section. POCT GLUCOSE Routine 04/08/2019 7:19 Results for this (AUTOMATED) AM CDT procedure are in the results section. XR CHEST 2 VW Routine 04/08/2019 6:28 S/P CABG x 2 on Results for this AM CDT 04/05/2019 procedure are in the results section. POCT GLUCOSE Routine 04/07/2019 8:33 Results for this (AUTOMATED) PM CDT procedure are in the results section. POCT GLUCOSE Routine 04/07/2019 5:08 Results for this (AUTOMATED) PM CDT procedure are in the results section. POCT GLUCOSE Routine 04/07/2019 12:01 Results for this (AUTOMATED) PM CDT procedure are in the results section. POCT GLUCOSE Routine 04/07/2019 7:29 Results for this (AUTOMATED) AM CDT procedure are in the results section. CBC WITH Routine 04/07/2019 5:01 Results for this DIFFERENTIAL AM CDT procedure are in the results section. CBC WITH DIFF Routine 04/07/2019 5:01 Results for this AM CDT procedure are in the results section. BASIC METABOLIC Routine 04/07/2019 5:01 Results for this PANEL (NA, K, CL, AM CDT procedure are in CO2, GLUCOSE, BUN, the results CREATININE, CA) section. POCT GLUCOSE Routine 04/06/2019 8:24 Results for this (AUTOMATED) PM CDT procedure are in the results section. POCT GLUCOSE Routine 04/06/2019 5:06 Results for this (AUTOMATED) PM CDT procedure are in the results section. POCT GLUCOSE Routine 04/06/2019 12:52 Results for this (AUTOMATED) PM CDT procedure are in the results section. EKG-12 LEAD Routine 04/06/2019 8:06 AM CDT POCT GLUCOSE Routine 04/06/2019 7:45 Results for this (AUTOMATED) AM CDT procedure are in the results section. POCT GLUCOSE Routine 04/06/2019 6:23 Results for this (AUTOMATED) AM CDT procedure are in the results section. POCT GLUCOSE Routine 04/06/2019 5:35 Results for this (AUTOMATED) AM CDT procedure are in the results section. CBC WITH Routine 04/06/2019 4:58 Results for this DIFFERENTIAL AM CDT procedure are in the results section. CBC WITH DIFF Routine 04/06/2019 4:58 Results for this AM CDT procedure are in the results section. BASIC METABOLIC GENEVA 04/06/2019 4:58 Results for this PANEL (NA, K, CL, AM CDT procedure are in CO2, GLUCOSE, BUN, the results CREATININE, CA) section. XR CHEST 1 VW GENEVA 04/06/2019 4:50 S/P CABG Results for this AM CDT (coronary artery procedure are in bypass graft) the results section. AC PANEL 20 + LACTIC GENEVA 04/05/2019 3:14 Results for this ACID PM CDT procedure are in the results section. EKG-12 LEAD Routine 04/05/2019 1:32 PM CDT XR CHEST 1 VW STAT 04/05/2019 1:32 S/P CABG Results for this PM CDT (coronary artery procedure are in bypass graft) the results section. XR ABDOMEN 1 VW STAT 04/05/2019 1:32 S/P CABG Results for this PM CDT (coronary artery procedure are in bypass graft) the results section. MRSA / MSSA SCREEN GENEVA 04/05/2019 1:19 Results for this BY ABBY NEWMAN PM CDT procedure are in the results section. CBC WITH Routine 04/05/2019 1:19 Results for this DIFFERENTIAL PM CDT procedure are in the results section. ABG+COOX+NA+K+GLU+CA GENEVA 04/05/2019 1:19 Results for this 2+ PM CDT procedure are in the results section. GLYCOSYLATED GENEVA 04/05/2019 1:19 Results for this HEMOGLOBIN (A1C) PM CDT procedure are in the results section. CBC WITH DIFF Routine 04/05/2019 1:19 Results for this PM CDT procedure are in the results section. BASIC METABOLIC GENEVA 04/05/2019 1:19 Results for this PANEL (NA, K, CL, PM CDT procedure are in CO2, GLUCOSE, BUN, the results CREATININE, CA) section. ABG+COOX+NA+K+GLU+CA Routine 04/05/2019 12:47 Results for this 2+ PM CDT procedure are in the results section. [facility] Routine 04/05/2019 11:53 Results for this ARTERIAL AM CDT procedure are in the results section. [facility] Routine 04/05/2019 11:29 Results for this ARTERIAL AM CDT procedure are in the results section. [facility] Routine 04/05/2019 10:48 Results for this ARTERIAL AM CDT procedure are in the results section. [facility] Routine 04/05/2019 10:25 Results for this ARTERIAL AM CDT procedure are in the results section. ABG+COOX+NA+K+GLU+CA Routine 04/05/2019 8:21 Results for this 2+ AM CDT procedure are in the results section. [facility] Routine 04/05/2019 8:17 Results for this ARTERIAL AM CDT procedure are in the results section. CORONARY ARTERY Level 5 (greater 04/05/2019 6:45 Coronary artery BYPASS GRAFT than 5 days) AM CDT disease involving mechoopda coronary artery 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 Special Needs OR 12 ABORH CONFIRMATION Routine 04/05/2019 5:58 AM CDT EKG-12 LEAD Routine 04/05/2019 5:54 AM CDT ABORH INVESTIGATION Routine 04/05/2019 5:28 AM CDT documented in this encounter Results BASIC METABOLIC PANEL (NA, K, CL, CO2, GLUCOSE, BUN, CREATININE, CA) (2018 4:09 AM CDT) NA 133 (L) 135 - 145 [facility] mmol/L SERVICES K 3.9 3.5 - 5.0 [facility] mmol/L SERVICES CL 94 (L) 98 - 108 mmol/L [facility] SERVICES CO2 TOTAL 29 23 - 31 mmol/L [facility] SERVICES AGAP 10 2 - 16 [facility] SERVICES BUN 15 7 - 23 mg/dL [facility] SERVICES GLUCOSE 159 (H) 70 - 110 mg/dL [facility] SERVICES CREATININE 0.71 0.60 - 1.25 [facility] mg/dL SERVICES CALCIUM 7.7 (L) 8.6 - 10.6 [facility] mg/dL SERVICES eGFR Calculation 111.7 mL/min/1.73m2 [facility] (Non- SERVICES Jamaican) eGFR Calculation 135.4 mL/min/1.73m2 [facility] () SERVICES Specimen Blood - HAND, LEFT Narrative Performed At Association of Glomerular Filtration Rate (GFR) and Staging [facility] SERVICES of Kidney Disease* + + + + | GFR (mL/min/1.73 m2)| With Kidney Damage|Without Kidney Damage + + + + |>90|Stage one| Normal + + + + |60-89|Stage two| Decreased GFR + + + + |30-59|Stage three| Stage three + + + + |15-29|Stage four | Stage four + + + + |<15 (or dialysis)|Stage five | Stage five + + + + *Each stage assumes the associated GFR level has been in effect for at least three months.Stages 1 to 5, with or without kidney disease, indicate chronic kidney disease. Notes: Determination of stages one and two (with eGFR >59mL/min/1.73 m2) requires estimation of kidney damage for at least three months as defined by structural or functional abnormalities of the kidney, manifested by either: Pathological abnormalities or Markers of kidney damage (including abnormalities in the composition of the blood or urine or abnormalities in imaging tests). Performing Organization Address City/[facility]/Zipcode Phone Number [facility] CLIA: [id number], [address] [place] [address] [phone] [facility] PHOSPHORUS (04/09/2019 9:57 PM CDT) [facility] Signature PHOSPHORUS 2.5 2.5 - 5.0 mg/dL [facility] Specimen Blood - HAND, LEFT Performing Organization Address [facility]/Zipcode Phone Number [facility] CLIA: [id number], [address] [place] [address] [phone] [facility] MAGNESIUM (04/09/2019 9:57 PM CDT) MAGNESIUM 2.3 1.7 - 2.4 mg/dL [facility] Specimen Blood - HAND, LEFT Performing Organization Address City/State/Zipcode Phone Number [facility] CLIA: [id number], [address] [facility] [place] [address] [phone] [facility] BASIC METABOLIC PANEL (NA, K, CL, CO2, GLUCOSE, BUN, CREATININE, CA) (2018 9:57 PM CDT) NA 131 (L) 135 - 145 [facility] mmol/L SERVICES K 3.4 (L) 3.5 - 5.0 [facility] mmol/L SERVICES CL 93 (L) 98 - 108 mmol/L [facility] SERVICES CO2 TOTAL 30 23 - 31 mmol/L [facility] SERVICES AGAP 8 2 - 16 [facility] SERVICES BUN 15 7 - 23 mg/dL [facility] SERVICES GLUCOSE 168 (H) 70 - 110 mg/dL [facility] SERVICES CREATININE 0.73 0.60 - 1.25 [facility] mg/dL SERVICES CALCIUM 7.6 (L) 8.6 - 10.6 [facility] mg/dL SERVICES eGFR Calculation 108.2 mL/min/1.73m2 [facility] (Non- SERVICES Jamaican) eGFR Calculation 131.1 mL/min/1.73m2 [facility] () SERVICES Specimen Blood - HAND, LEFT Narrative Performed At Association of Glomerular Filtration Rate (GFR) and Staging [facility] SERVICES of Kidney Disease* + + + + | GFR (mL/min/1.73 m2)| With Kidney Damage|Without Kidney Damage + + + + |>90|Stage one| Normal + + + + |60-89|Stage two| Decreased GFR + + + + |30-59|Stage three| Stage three + + + + |15-29|Stage four | Stage four + + + + |<15 (or dialysis)|Stage five | Stage five + + + + *Each stage assumes the associated GFR level has been in effect for at least three months.Stages 1 to 5, with or without kidney disease, indicate chronic kidney disease. Notes: Determination of stages one and two (with eGFR >59mL/min/1.73 m2) requires estimation of kidney damage for at least three months as defined by structural or functional abnormalities of the kidney, manifested by either: Pathological abnormalities or Markers of kidney damage (including abnormalities in the composition of the blood or urine or abnormalities in imaging tests). Performing Organization Address City/State/Zipcode Phone Number [facility] CLIA: [id number], [address] [place] [address]208 [facility] POCT GLUCOSE (AUTOMATED) (04/09/2019 11:14 AM CDT) POCT GLU 190 (H) 70 - 110 mg/dL [facility] Specimen Blood Narrative Performed At Notified Provider [facility] Performing Organization Address City/[facility]/Zipcode Phone Number [facility] CLIA: [id number], [address] [place] [address] [phone] [facility]UCOSE (AUTOMATED) (04/09/2019 7:43 AM CDT) POCT GLU 194 (H) 70 - 110 mg/dL [facility] Specimen Blood Narrative Performed At Notified Provider [facility] Performing Organization Address [facility] [email or web address] Phone Number [facility] CLIA: [id number], [address] [place] [address] [phone] [facility] POCT GLUCOSE (AUTOMATED) (04/08/2019 8:08 PM CDT) POCT GLU 164 (H) 70 - 110 mg/dL [facility] Specimen Blood Narrative Performed At Notified Provider [facility] Performing Organization Address [facility] [[email or web address] Phone Number [facility] CLIA: [id number], [address] [place] [address] [phone] [employer] POCT GLUCOSE (AUTOMATED) (04/08/2019 5:17 PM CDT) POCT GLU 161 (H) 70 - 110 mg/dL [facility] Specimen Blood Narrative Performed At Notified Provider [facility] Performing Organization Address [facility]/Zipcode Phone Number [facility] CLIA: [id number], [address] [place] [address] [phone] [facility] POCT GLUCOSE (AUTOMATED) (04/08/2019 11:11 AM CDT) POCT GLU 211 (H) 70 - 110 mg/dL [facility] Specimen Blood Narrative Performed At Notified Provider [facility] Performing Organization Address City/[facility]/Zipcode Phone Number [facility] CLIA: [id number], [address] [place] [address] [phone] [facility] POCT GLUCOSE (AUTOMATED) (04/08/2019 7:19 AM CDT) POCT GLU 183 (H) 70 - 110 mg/dL [facility] Specimen Blood Narrative Performed At Notified Provider [facility] Performing Organization Address [facility] [email or web address] Phone Number [facility] CLIA: [id number], [address] [place] [address] 75122 [phone] [facility] Chest 2 Views - Upright ( PA, LAT) on POD # 3 (04/08/2019 6:28 AM CDT) Specimen Impressions Performed At FINDINGS IMPRESSION: PACS/VR/DOSE The lungs are underinflated with mild pulmonary vascular crowding and bibasilar atelectasis. No pneumothorax. Trace bilateral pleural effusions. The cardiomediastinal silhouette is normal in size. Aortic arch calcifications are present. No acute osseous abnormalities. Numerous sternotomy wires are present. Handy Alcaraz MD., have reviewed this study and agree with the above report. Narrative Performed At EXAM: XR CHEST 2 VW PACS/VR/DOSE HISTORY: s/p open heart surgery COMPARISON: 04/06/2019 chest radiograph Procedure Note [facility], Radiant Results Inft User - 04/08/2019 9:12 AM CDT EXAM: XR CHEST 2 VW HISTORY: s/p open heart surgery COMPARISON: 04/06/2019 chest radiograph IMPRESSION FINDINGS IMPRESSION: The lungs are underinflated with mild pulmonary vascular crowding and bibasilar atelectasis. No pneumothorax. Trace bilateral pleural effusions. The cardiomediastinal silhouette is normal in size. Aortic arch calcifications are present. No acute osseous abnormalities. Numerous sternotomy wires are present. Emile Alcaraz MD., have reviewed this study and agree with the above report. Performing Organization Address City/State/Zipcode Phone Number PACS/VR/DOSE POCT GLUCOSE (AUTOMATED) (04/07/2019 8:33 PM CDT) POCT GLU 186 (H) 70 - 110 mg/dL [facility] Specimen Blood Performing Organization Address City/[facility] [[email or web address] Phone Number [facility] CLIA: [id number], [address] [place] [address] [phone] [facility] POCT GLUCOSE (AUTOMATED) (04/07/2019 5:08 PM CDT) POCT GLU 188 (H) 70 - 110 mg/dL [facility] Specimen Blood Narrative Performed At Notified Provider [facility] Performing Organization Address [facility] Phone Number [facility] CLIA: [id number], [address] [place] [address] [phone] [facility] POCT GLUCOSE (AUTOMATED) (04/07/2019 12:01 PM CDT) POCT GLU 216 (H) 70 - 110 mg/dL [facility] Specimen Blood Narrative Performed At Notified Provider [facility] Performing Organization Address [facility] Phone Number [facility] CLIA: [id number], [address] [place] [address] [phone] [facility] POCT GLUCOSE (AUTOMATED) (04/07/2019 7:29 AM CDT) POCT GLU 222 (H) 70 - 110 mg/dL [facility] Specimen Blood Narrative Performed At Notified Provider [facility] Performing Organization Address [facility] Phone Number [facility] CLIA: [id number], [address] [place] [address] [phone] [facility] CBC WITH DIFFERENTIAL (04/07/2019 5:01 AM CDT) WBC 15.26 (H) 4.20 - 10.70 [facility] 10*3/L SERVICES RBC 2.41 (L) 4.26 - 5.52 [facility] 10*6/L SERVICES HGB 7.2 (L) 12.2 - 16.4 [facility] g/dL SERVICES HCT 22.0 (L) 38.4 - 49.3 % [facility] SERVICES MCV 91.3 81.7 - 95.6 [facility] fL SERVICES MCH 29.9 26.1 - 32.7 [facility] pg SERVICES MCHC 32.7 31.2 - 35.0 [facility] g/dL SERVICES RDW-SD 43.7 38.5 - 51.6 [facility] fL SERVICES RDW-CV 13.2 12.1 - 15.4 % [facility] SERVICES PLT 82 (L) 150 - 328 [facility] 10*3/L SERVICES MPV 11.7 9.8 - 13.0 fL [facility] SERVICES IPF % 8.6Comment: Platelet 1.2 - 10.7 % [facility] count measured by SERVICES fluorescence method. NRBC/100 WBC 0.0 0.0 - 10.0 [facility] /100 WBCs SERVICES NRBC x10^3 <0.01 10*3/L [facility] SERVICES GRAN MAT (NEUT) % 73.4 % [facility] SERVICES IMM GRAN % 0.50 % [facility] SERVICES LYMPH % 15.1 % [facility] SERVICES MONO % 10.9 % [facility] SERVICES EOS % 0.0 % [facility] SERVICES BASO % 0.1 % [facility] SERVICES GRAN MAT 11.19 (H) 1.99 - 6.95 [facility] x10^3(ANC) 10*3/uL SERVICES IMM GRAN x10^3 0.08 (H) 0.00 - 0.06 [facility] 10*3/uL SERVICES LYMPH x10^3 2.31 1.09 - 3.23 [facility] 10*3/uL SERVICES MONO x10^3 1.67 (H) 0.36 - 1.02 [facility] 10*3/uL SERVICES EOS x10^3 <0.03 (L) 0.06 - 0.53 [facility] 10*3/uL SERVICES BASO x10^3 <0.03 0.01 - 0.09 [facility] 10*3/uL SERVICES SIDEROTIC GRAN Suggestive of [facility] (A)Comment: RBC SERVICES inclusions suggestive of siderotic granules. Iron stain required for positive identification. Specimen Blood - CENTRAL VENOUS LINE Performing Organization Address City/State/Zipcode Phone Number [facility] CLIA: [id number], [address] [place] [address] [facility] Basic Metabolic Panel (NA, K, CL, CO2, GLUCOSE, BUN, CREATININE, CA) on POD # 2 (04/07/2019 5:01 AMCDT) NA 133 (L) 135 - 145 [facility] mmol/L SERVICES K 4.4 3.5 - 5.0 [facility] mmol/L SERVICES CL 98 98 - 108 mmol/L [facility] SERVICES CO2 TOTAL 31 23 - 31 mmol/L [facility] SERVICES AGAP 4 2 - 16 [facility] SERVICES BUN 18 7 - 23 mg/dL [facility] SERVICES GLUCOSE 169 (H) 70 - 110 mg/dL [facility] SERVICES CREATININE 0.96 0.60 - 1.25 [facility] mg/dL SERVICES CALCIUM 7.9 (L) 8.6 - 10.6 [facility] mg/dL SERVICES eGFR Calculation 78.9 mL/min/1.73m2 [facility] (Non- SERVICES Jamaican) eGFR Calculation 95.6 mL/min/1.73m2 [facility] () SERVICES Specimen Blood - CENTRAL VENOUS LINE Narrative Performed At [facility] of Glomerular Filtration Rate (GFR) and Staging [facility] SERVICES of Kidney Disease* + + + + | GFR (mL/min/1.73 m2)| With Kidney Damage|Without Kidney Damage + + + + |>90|Stage one| Normal + + + + |60-89|Stage two| Decreased GFR + + + + |30-59|Stage three| Stage three + + + + |15-29|Stage four | Stage four + + + + |<15 (or dialysis)|Stage five | Stage five + + + + *Each stage assumes the associated GFR level has been in effect for at least three months.Stages 1 to 5, with or without kidney disease, indicate chronic kidney disease. Notes: Determination of stages one and two (with eGFR >59mL/min/1.73 m2) requires estimation of kidney damage for at least three months as defined by structural or functional abnormalities of the kidney, manifested by either: Pathological abnormalities or Markers of kidney damage (including abnormalities in the composition of the blood or urine or abnormalities in imaging tests). Performing Organization Address City/State/Zipcode Phone Number [facility] CLIA: [id number], [address] [place] [address] [phone] [facility] POCT GLUCOSE (AUTOMATED) (04/06/2019 8:24 PM CDT) POCT GLU 198 (H) 70 - 110 mg/dL [facility] Specimen Blood Performing Organization Address City/[facility] [[email or web address] Phone Number [facility] CLIA: [id number], [address] [place] [address] [phone] [employer] POCT GLUCOSE (AUTOMATED) (04/06/2019 5:06 PM CDT) POCT GLU 194 (H) 70 - 110 mg/dL [facility] Specimen Blood Performing Organization Address [facility] Phone Number [facility] CLIA: [id number], [address] [place] [address] [phone] [employer] POCT GLUCOSE (AUTOMATED) (04/06/2019 12:52 PM CDT) POCT GLU 198 (H) 70 - 110 mg/dL [facility] Specimen Blood Performing Organization Address [facility] Phone Number [facility] CLIA: [id number], [address] [place] [address] [phone] [employer] POCT GLUCOSE (AUTOMATED) (04/06/2019 7:45 AM CDT) POCT GLU 116 (H) 70 - 110 mg/dL [facility] Specimen Blood Performing Organization Address [facility] Phone Number [facility] CLIA: [id number], [address] [place] [address] [phone] [employer] POCT GLUCOSE (AUTOMATED) (04/06/2019 6:23 AM CDT) POCT GLU 181 (H) 70 - 110 mg/dL [facility] Specimen Blood Performing Organization Address [facility]/Zipcode Phone Number [facility] CLIA: [id number], [address] [place] [address] [facility] POCT GLUCOSE (AUTOMATED) (04/06/2019 5:35 AM CDT) POCT GLU 191 (H) 70 - 110 mg/dL [facility] Specimen Blood Performing Organization Address City/State/Zipcode Phone Number [facility] CLIA: [id number], [address] [place] [address] [facility] CBC WITH DIFFERENTIAL (04/06/2019 4:58 AM CDT) WBC 13.04 (H) 4.20 - 10.70 [facility] 10*3/L SERVICES RBC 2.81 (L) 4.26 - 5.52 [facility] 10*6/L SERVICES HGB 8.6 (L) 12.2 - 16.4 [facility] g/dL SERVICES HCT 25.1 (L) 38.4 - 49.3 % [facility] SERVICES MCV 89.3 81.7 - 95.6 [facility] fL SERVICES MCH 30.6 26.1 - 32.7 [facility] pg SERVICES MCHC 34.3 31.2 - 35.0 [facility] g/dL SERVICES RDW-SD 42.6 38.5 - 51.6 [facility] fL SERVICES RDW-CV 13.2 12.1 - 15.4 % [facility] SERVICES PLT 89 (L) 150 - 328 [facility] 10*3/L SERVICES MPV 12.5 9.8 - 13.0 fL [facility] SERVICES IPF % 11.4 (H)Comment: 1.2 - 10.7 % [facility] Platelet count SERVICES measured by fluorescence method. NRBC/100 WBC 0.0 0.0 - 10.0 [facility] /100 WBCs SERVICES NRBC x10^3 <0.01 10*3/L [facility] SERVICES GRAN MAT (NEUT) % 75.5 % [facility] SERVICES IMM GRAN % 0.60 % [facility] SERVICES LYMPH % 11.6 % [facility] SERVICES MONO % 12.2 % [facility] SERVICES EOS % 0.0 % [facility] SERVICES BASO % 0.1 % [facility] SERVICES GRAN MAT 9.85 (H) 1.99 - 6.95 [facility] x10^3(ANC) 10*3/uL SERVICES IMM GRAN x10^3 0.08 (H) 0.00 - 0.06 [facility] 10*3/uL SERVICES LYMPH x10^3 1.51 1.09 - 3.23 [facility] 10*3/uL SERVICES MONO x10^3 1.59 (H) 0.36 - 1.02 [facility] 10*3/uL SERVICES EOS x10^3 <0.03 (L) 0.06 - 0.53 [facility] 10*3/uL SERVICES BASO x10^3 <0.03 0.01 - 0.09 [facility] 10*3/uL SERVICES BASO STIPPLING Present (A) [facility] Specimen Blood - ARTERIAL Performing Organization Address City/State/Zipcode Phone Number [facility] CLIA: [id number], [address], [place] [phone] [facility] Basic Metabolic Panel (NA, K, CL, CO2, GLUCOSE, BUN, CREATININE, CA) (2018 4:58 AM CDT) NA 132 (L) 135 - 145 [facility] mmol/L SERVICES K 4.8 3.5 - 5.0 [facility] mmol/L SERVICES CL 101 98 - 108 mmol/L [facility] SERVICES CO2 TOTAL 28 23 - 31 mmol/L [facility] SERVICES AGAP 3 2 - 16 [facility] BUN 18 7 - 23 mg/dL [facility] SERVICES GLUCOSE 193 (H) 70 - 110 mg/dL [facility] CREATININE 1.07 0.60 - 1.25 [facility] mg/dL SERVICES CALCIUM 7.8 (L) 8.6 - 10.6 [facility] mg/dL SERVICES eGFR Calculation 69.6 mL/min/1.73m2 [facility] (Non- SERVICES Jamaican) eGFR Calculation 84.3 mL/min/1.73m2 [facility] () SERVICES Specimen Blood - ARTERIAL Narrative Performed At Association of Glomerular Filtration Rate (GFR) and Staging [facility] of Kidney Disease* + + + + | GFR (mL/min/1.73 m2)| With Kidney Damage|Without Kidney Damage + + + + |>90|Stage one| Normal + + + + |60-89|Stage two| Decreased GFR + + + + |30-59|Stage three| Stage three + + + + |15-29|Stage four | Stage four + + + + |<15 (or dialysis)|Stage five | Stage five + + + + *Each stage assumes the associated GFR level has been in effect for at least three months.Stages 1 to 5, with or without kidney disease, indicate chronic kidney disease. Notes: Determination of stages one and two (with eGFR >59mL/min/1.73 m2) requires estimation of kidney damage for at least three months as defined by structural or functional abnormalities of the kidney, manifested by either: Pathological abnormalities or Markers of kidney damage (including abnormalities in the composition of the blood or urine or abnormalities in imaging tests). Performing Organization Address City/[facility]/Zipcode Phone Number [facility] CLIA: [id number], [address] [place] [address] [phone] [facility] Chest 1 View (04/06/2019 4:50 AM CDT) Specimen Narrative Performed At * * * * * * * * ORIGINAL REPORT * * * * * * * * PACS/VR/DOSE EXAM: XR CHEST 1 VW HISTORY: s/p open heart surgery COMPARISON: None. FINDINGS: The endotracheal tube and a left chest tube were removed. A mediastinal drain and the right chest tube remain, and the tip of the Carroll-Bella catheter is in the main pulmonary artery. The heart and great vessels are normal. The lungs are poorly expanded, and the left is mildly congested. Procedure Note [facility], Radiant Results Inft User - 04/06/2019 8:26 AM CDT * * * * * * * * ORIGINAL REPORT * * * * * * * * EXAM: XR CHEST 1 VW HISTORY: s/p open heart surgery COMPARISON: None. FINDINGS: The endotracheal tube and a left chest tube were removed. A mediastinal drain and the right chest tube remain, and the tip of the Carroll-Bella catheter is in the main pulmonary artery. The heart and great vessels are normal. The lungs are poorly expanded, and the left is mildly congested. Performing Organization Address City/State/Zipcode Phone Number PACS/VR/DOSE AC PANEL 20 + LACTIC ACID (04/05/2019 3:14 PM CDT) PH 7.34 (L) 7.35 - 7.45 [facility] PCO2 41 35 - 45 mmHg [facility] PO2 174 (H) 80 - 100 mmHg [facility] HCO3 22 22 - 26 mEq/L [facility] BE -3.7 (L) -3.0 - 3.0 mEq/L [facility] THB 10.6 (L) 13.5 - 18.0 g/dL [facility] %O2HB 97.6 94.0 - 99.0 % [facility] %COHB ART 0.3 0.0 - 1.5 % [facility] %METHB ART 0.2 (L) 0.4 - 1.5 % [facility] VOL%O2 ART 14.9 (L) 15.0 - 23.0 % [facility] NA 132 (L) 135 - 145 mmol/L [facility] K+ 4.6 3.5 - 5.0 mmol/L [facility] AC CA IONZ 4.40 (L) 4.50 - 5.30 mg/dL [facility] GLUCOSE 103 70 - 110 mg/dL [facility] LACTIC ACID 1.97 0.50 - 2.20 mmol/L [facility] Specimen Blood - ARTERIAL Performing Organization Address City/State/Zipcode Phone Number [facility] CLIA: [id number], [address] [place] [phone] [facility] Abdomen XRay 1 View (04/05/2019 1:32 PM CDT) Specimen Impressions Performed At PACS/VR/DOSE The NG tube tip enters the stomach, but the side-port is likely right at the GE junction. It should be placed deeper by about 3 to 4 cm. Critical Finding Reported to and acknowledged by SICU nurse Juli@2:56 PM on 04/10/2019 Failed communication attempts 0 I, MD. Viviana, have reviewed this study and agree with the above report. Narrative Performed At * * * * * * * * ORIGINAL REPORT * * * * * * * * PACS/VR/DOSE EXAM: XR ABDOMEN 1 VW HISTORY: OGT placement COMPARISON: No prior studies available for comparison. FINDINGS: The NG tube courses down the mediastinum and the tip enters the stomach. However the side-port is likely at the GE junction. Changes of median sternotomy are noted. A mediastinal chest tube tip terminates in the mediastinum. A right-sided chest tube terminates in the right lower lung pleura. A Carroll-Bella catheter tip likely enters the right pulmonary artery. The bowel gas pattern is non-obstructive. No abnormal calcifications or radiopaque stones are identified. No acute bony abnormalities are noted. Procedure Note [facility], Radiant Results Inft User - 04/05/2019 3:47 PM CDT * * * * * * * * ORIGINAL REPORT * * * * * * * * EXAM: XR ABDOMEN 1 VW HISTORY: OGT placement COMPARISON: No prior studies available for comparison. FINDINGS: The NG tube courses down the mediastinum and the tip enters the stomach. However the side-port is likely at the GE junction. Changes of median sternotomy are noted. A mediastinal chest tube tip terminates in the mediastinum. A right-sided chest tube terminates in the right lower lung pleura. A Carroll-Bella catheter tip likely enters the right pulmonary artery. The bowel gas pattern is non-obstructive. No abnormal calcifications or radiopaque stones are identified. No acute bony abnormalities are noted. IMPRESSION The NG tube tip enters the stomach, but the side-port is likely right at the GE junction. It should be placed deeper by about 3 to 4 cm. Critical Finding Reported to and acknowledged by SICU nurse Juli@2:56 PM on 04/10/2019 Failed communication attempts 0 I, Marco Antonio Gaffney MD., have reviewed this study and agree with the above report. Performing Organization Address City/State/Zipcode Phone Number PACS/VR/DOSE Chest 1 View (on admission) (04/05/2019 1:32 PM CDT) Specimen Impressions Performed At Findings/Impression: PACS/VR/DOSE *ETT terminates at the level of clavicular heads, 3.6 cm above the viet. Nasogastric tube traverses the esophagus with its tip out of the [id number], its sidehole projects over the GE junction. Right IJ Carroll-Bella catheter terminates in the main pulmonary trunk. Mediastinal chest tube project over mid cardiac region and right hilum. *The lungs are underinflated with bibasilar atelectasis and mild pulmonary edema. *Lucency near the right-sided chest tube may represent a small pneumothorax. Small bilateral pleural effusions are suspected. *The cardiac silhouette is upper limit of normal in size. *Multiple median sternotomy wires are present. Nikki Alcaraz MD., have reviewed this study and agree with the above report. Narrative Performed At XR CHEST 1 VW PACS/VR/DOSE History: s/p open heart surgery Comparison: April 03, 2019 Procedure Note [facility], Radiant Results Inft User - 04/05/2019 3:10 PM CDT XR CHEST 1 VW History: s/p open heart surgery Comparison: April 03, 2019 IMPRESSION Findings/Impression: * ETT terminates at the level of clavicular heads, 3.6 cm above the viet. Nasogastric tube traverses the esophagus with its tip out of the yyder-[id number], its sidehole projects over the GE junction. Right IJ Carroll-Bella catheter terminates in the main pulmonary trunk. Mediastinal chest tube project over mid cardiac region and right hilum. * The lungs are underinflated with bibasilar atelectasis and mild pulmonary edema. * Lucency near the right-sided chest tube may represent a small pneumothorax. Small bilateral pleural effusions are suspected. * The cardiac silhouette is upper limit of normal in size. * Multiple median sternotomy wires are present. George Alcaraz MD., have reviewed this study and agree with the above report. Performing Organization Address City/State/Zipcode Phone Number PACS/VR/DOSE CBC WITH DIFFERENTIAL (04/05/2019 1:19 PM CDT) WBC 19.57 (H) 4.20 - 10.70 [facility] 10*3/L SERVICES RBC 3.43 (L) 4.26 - 5.52 [facility] 10*6/L SERVICES HGB 10.3 (L) 12.2 - 16.4 [facility] g/dL SERVICES HCT 30.4 (L) 38.4 - 49.3 % [facility] MCV 88.6 81.7 - 95.6 fL [facility] MCH 30.0 26.1 - 32.7 pg [facility] MCHC 33.9 31.2 - 35.0 [facility] g/dL SERVICES RDW-SD 41.3 38.5 - 51.6 fL [facility] RDW-CV 12.8 12.1 - 15.4 % [facility] PLT 112 (L) 150 - 328 [facility] 10*3/L SERVICES MPV 12.2 9.8 - 13.0 fL [facility] NRBC/100 WBC 0.0 0.0 - 10.0 /100 [facility] WBCs SERVICES NRBC x10^3 <0.01 10*3/L [facility] GRAN MAT (NEUT) % 75.0 % [facility] IMM GRAN % 0.60 % [facility] LYMPH % 16.6 % [facility] MONO % 7.6 % [facility] EOS % 0.1 % [facility] BASO % 0.1 % [facility] GRAN MAT x10^3(ANC) 14.68 (H) 1.99 - 6.95 [facility] 10*3/uL SERVICES IMM GRAN x10^3 0.12 (H) 0.00 - 0.06 [facility] 10*3/uL SERVICES LYMPH x10^3 3.25 (H) 1.09 - 3.23 [facility] 10*3/uL SERVICES MONO x10^3 1.49 (H) 0.36 - 1.02 [facility] 10*3/uL SERVICES EOS x10^3 <0.03 (L) 0.06 - 0.53 [facility] 10*3/uL SERVICES BASO x10^3 <0.03 0.01 - 0.09 [facility] 10*3/uL SERVICES Specimen Blood - LINE, ARTERIAL Performing Organization Address City/State/Zipcode Phone Number [facility] CLIA: [id number], [address] [place] [address] [phone] [facility] ABG+COOX+NA+K+GLU+CA2+ (04/05/2019 1:19 PM CDT) PH 7.37 7.35 - 7.45 [facility] PCO2 38 35 - 45 mmHg [facility] PO2 249 (H) 80 - 100 mmHg [facility] HCO3 22 22 - 26 mEq/L [facility] BE -3.2 (L) -3.0 - 3.0 mEq/L [facility] THB 11.0 (L) 13.5 - 18.0 g/dL [facility] %O2HB 98.2 94.0 - 99.0 % [facility] %COHB ART 0.3 0.0 - 1.5 % [facility] %METHB ART 0.2 (L) 0.4 - 1.5 % [facility] VOL%O2 ART 15.8 15.0 - 23.0 % [facility] NA 132 (L) 135 - 145 mmol/L [facility] K+ 3.9 3.5 - 5.0 mmol/L [facility] AC CA IONZ 5.10 4.50 - 5.30 mg/dL [facility] GLUCOSE 172 (H) 70 - 110 mg/dL [facility] Specimen Blood - ARTERIAL Performing Organization Address City/[facility]/Zipcode Phone Number [facility] CLIA: [id number], [address] [place] [phone] [facility] GLYCOSYLATED HEMOGLOBIN (A1C) (04/05/2019 1:19 PM CDT) HGB A1C 6.6 (H) 4.0 - 6.0 % [facility] Specimen Blood - LINE, ARTERIAL Performing Organization Address City/[facility]/Zipcode Phone Number [facility] CLIA: [id number], [address] [place] [address] [phone] [facility] Basic Metabolic Panel (NA, K, CL, CO2, GLUCOSE, BUN, CREATININE, CA) (2018 1:19 PM CDT) NA 134 (L) 135 - 145 [facility] mmol/L SERVICES K 4.0 3.5 - 5.0 [facility] mmol/L SERVICES CL 104 98 - 108 mmol/L [facility] CO2 TOTAL 24 23 - 31 mmol/L [facility] AGAP 6 2 - 16 [facility] BUN 11 7 - 23 mg/dL [facility] GLUCOSE 168 (H) 70 - 110 mg/dL [facility] CREATININE 0.68 0.60 - 1.25 [facility] mg/dL SERVICES CALCIUM 8.9 8.6 - 10.6 [facility] mg/dL SERVICES eGFR Calculation 117.4 mL/min/1.73m2 [facility] (Non- SERVICES Jamaican) eGFR Calculation 142.3 mL/min/1.73m2 [facility] () SERVICES Specimen Blood - ARTERIAL Narrative Performed At Association of Glomerular Filtration Rate (GFR) and Staging [facility] of Kidney Disease* + + + + | GFR (mL/min/1.73 m2)| With Kidney Damage|Without Kidney Damage + + + + |>90|Stage one| Normal + + + + |60-89|Stage two| Decreased GFR + + + + |30-59|Stage three| Stage three + + + + |15-29|Stage four | Stage four + + + + |<15 (or dialysis)|Stage five | Stage five + + + + *Each stage assumes the associated GFR level has been in effect for at least three months.Stages 1 to 5, with or without kidney disease, indicate chronic kidney disease. Notes: Determination of stages one and two (with eGFR >59mL/min/1.73 m2) requires estimation of kidney damage for at least three months as defined by structural or functional abnormalities of the kidney, manifested by either: Pathological abnormalities or Markers of kidney damage (including abnormalities in the composition of the blood or urine or abnormalities in imaging tests). Performing Organization Address City/State/[facility] [email or web address] Phone Number [facility] CLIA: [id number], [address] [place] [address] [phone] [facility] MRSA / MSSA Screen by PCR, Nares (04/05/2019 1:19 PM CDT) Pathologist [facility] [place] MRSA Screen by PCR, Negative Negative [facility] Nares SERVICES MSSA Screen by PCR, Negative Negative [facility] Nares SERVICES MRSA/MSSA Positive? No No [facility] Specimen Swab - NARES, BOTH SIDES Performing Organization Address City/[facility] [email or web address] Phone Number [facility] CLIA: [id number], [address] [place] [address] [phone] [facility] ABG+COOX+NA+K+GLU+CA2+ (04/05/2019 12:47 PM CDT) Pathologist [facility] PH 7.40 7.35 - 7.45 [facility] PCO2 37 35 - 45 mmHg [facility] PO2 448 (H) 80 - 100 mmHg [facility] HCO3 22 22 - 26 mEq/L [facility] BE -2.0 -3.0 - 3.0 mEq/L [facility] THB 11.0 (L) 13.5 - 18.0 g/dL [facility] %O2HB 97.9 94.0 - 99.0 % [facility] %COHB ART 0.1 0.0 - 1.5 % [facility] %METHB ART 0.2 (L) 0.4 - 1.5 % [facility] VOL%O2 ART 16.4 15.0 - 23.0 % [facility] NA 131 (L) 135 - 145 mmol/L [facility] K+ 4.1 3.5 - 5.0 mmol/L [facility] AC CA IONZ 4.10 (L) 4.50 - 5.30 mg/dL [facility] GLUCOSE 180 (H) 70 - 110 mg/dL [facility] Specimen Blood Performing Organization Address City/[facility] [email or web address] Phone Number [facility] CLIA: [id number], [address] [place] [address] [phone] [facility] ACUTE CARE ARTERIAL (04/05/2019 11:53 AM CDT) [facility] Signature PH 7.38 7.35 - 7.45 [facility] PCO2 41 35 - 45 mmHg [facility] PO2 200 (H) 80 - 100 mmHg [facility] BE -1.0 -3.0 - 3.0 [facility] mEq/L SERVICES HCO3 24 22 - 26 mEq/L [facility] %O2HB 100.0 (H) 95.0 - 98.0 % [facility] NA 135 135 - 145 [facility] mmol/L SERVICES K+ 3.9 3.5 - 5.0 [facility] mmol/L SERVICES AC CA IONZ 4.90 4.50 - 5.30 [facility] mg/dL SERVICES GLUCOSE 181 (H) 70 - 110 mg/dL [facility] SERVICES AC Hematocrit 25 (LL)Comment: 40 - 54 VOL % [facility] Critical value has SERVICES been reported to LIP on site THB 8.5 (L) 13.5 - 18.0 [facility] g/dL SERVICES AC TC02 25 23-27 mmol/L [facility] mmol/L SERVICES Specimen Blood Performing Organization Address City/[facility] [email or web address] Phone Number [facility] CLIA: [id number], [address] [place] [address] [phone] [facility] ACUTE CARE ARTERIAL (04/05/2019 11:29 AM CDT) PH 7.40 7.35 - 7.45 [facility] PCO2 40 35 - 45 mmHg [facility] PO2 241 (H) 80 - 100 mmHg [facility] BE 0.0 -3.0 - 3.0 mEq/L [facility] HCO3 25 22 - 26 mEq/L [facility] %O2HB 100.0 (H) 95.0 - 98.0 % [facility] NA 135 135 - 145 mmol/L [facility] K+ 4.5 3.5 - 5.0 mmol/L [facility] AC CA IONZ 3.70 (L) 4.50 - 5.30 mg/dL [facility] GLUCOSE 202 (H) 70 - 110 mg/dL [facility] AC Hematocrit 26 (L) 40 - 54 VOL % [facility] THB 8.8 (L) 13.5 - 18.0 g/dL [facility] AC TC02 26 23-27 mmol/L [facility] mmol/L SERVICES Specimen Blood Performing Organization Address City/State/Zipcode Phone Number [facility] CLIA: [id number], [address] [place] [phone] [facility] ACUTE CARE ARTERIAL (04/05/2019 10:48 AM CDT) PH 7.38 7.35 - 7.45 [facility] PCO2 42 35 - 45 mmHg [facility] PO2 247 (H) 80 - 100 mmHg [facility] BE 0.0 -3.0 - 3.0 mEq/L [facility] HCO3 25 22 - 26 mEq/L [facility] %O2HB 100.0 (H) 95.0 - 98.0 % [facility] NA 134 (L) 135 - 145 mmol/L [facility] K+ 5.2 (H) 3.5 - 5.0 mmol/L [facility] AC CA IONZ 3.80 (L) 4.50 - 5.30 mg/dL [facility] GLUCOSE 233 (H) 70 - 110 mg/dL [facility] AC Hematocrit 26 (L) 40 - 54 VOL % [facility] THB 8.8 (L) 13.5 - 18.0 g/dL [facility] AC TC02 27 23-27 mmol/L [facility] mmol/L SERVICES Specimen Blood Performing Organization Address City/State/Zipcode Phone Number [facility] CLIA: [id number], [address] [place] [address] [phone] [facility] ISTAT ACUTE CARE ARTERIAL (04/05/2019 10:25 AM CDT) PH 7.34 (L) 7.35 - 7.45 [facility] PCO2 47 (H) 35 - 45 mmHg [facility] PO2 160 (H) 80 - 100 mmHg [facility] BE 0.0 -3.0 - 3.0 [facility] mEq/L SERVICES HCO3 25 22 - 26 mEq/L [facility] SERVICES %O2HB 99.0 (H) 95.0 - 98.0 % [facility] SERVICES NA 133 (L) 135 - 145 [facility] mmol/L SERVICES K+ 6.3 (HH)Comment: 3.5 - 5.0 [facility] Critical value has mmol/L SERVICES been reported to LIP on site AC CA IONZ 3.60 (L) 4.50 - 5.30 [facility] mg/dL SERVICES GLUCOSE 254 (H) 70 - 110 mg/dL [facility] SERVICES AC Hematocrit 24 (LL)Comment: 40 - 54 VOL % [facility] Critical value has SERVICES been reported to LIP on site THB 8.2 (LL)Comment: 13.5 - 18.0 [facility] Critical value has g/dL SERVICES been reported to LIP on site AC TC02 27 23-27 mmol/L [facility] mmol/L SERVICES Specimen Blood Performing Organization Address City/State/Zipcode Phone Number [facility] CLIA: [id number], [address] [place] [address] [phone] [facility] ABG+COOX+NA+K+GLU+CA2+ (04/05/2019 8:21 AM CDT) PH 7.42 7.35 - 7.45 [facility] PCO2 38 35 - 45 mmHg [facility] PO2 269 (H) 80 - 100 mmHg [facility] HCO3 24 22 - 26 mEq/L [facility] BE 0.2 -3.0 - 3.0 mEq/L [facility] THB 13.2 (L) 13.5 - 18.0 g/dL [facility] %O2HB 97.8 94.0 - 99.0 % [facility] %COHB ART 0.3 0.0 - 1.5 % [facility] %METHB ART 0.2 (L) 0.4 - 1.5 % [facility] VOL%O2 ART 18.8 15.0 - 23.0 % [facility] NA 135 135 - 145 mmol/L [facility] K+ 4.5 3.5 - 5.0 mmol/L [facility] AC CA IONZ 4.50 4.50 - 5.30 mg/dL [facility] GLUCOSE 165 (H) 70 - 110 mg/dL [facility] Specimen Blood Performing Organization Address City/State/Zipcode Phone Number [facility] CLIA: [id number], [address] [place] [phone] [facility] ACUTE CARE ARTERIAL (04/05/2019 8:17 AM CDT) PH 7.39 7.35 - 7.45 [facility] PCO2 32 (L) 35 - 45 mmHg [facility] PO2 192 (H) 80 - 100 mmHg [facility] BE -6.0 (L) -3.0 - 3.0 mEq/L [facility] HCO3 19 (L) 22 - 26 mEq/L [facility] %O2HB 100.0 (H) 95.0 - 98.0 % [facility] NA 141 135 - 145 mmol/L [facility] K+ 3.4 (L) 3.5 - 5.0 mmol/L [facility] AC CA IONZ 4.00 (L) 4.50 - 5.30 mg/dL [facility] GLUCOSE 120 (H) 70 - 110 mg/dL [facility] AC Hematocrit 26 (L) 40 - 54 VOL % [facility] THB 8.8 (L) 13.5 - 18.0 g/dL [facility] AC TC02 20 (L) 23-27 mmol/L [facility] mmol/L SERVICES Specimen Blood Performing Organization Address City/State/Zipcode Phone Number [facility] CLIA: [id number], [address] [place] [address] [facility] ABORH CONFIRMATION (04/05/2019 5:58 AM CDT) ABO & RH A Negative LAB Comment: Performed at [facility] Laboratory Services - [facility] Blood [place] [address] Toll Free: [phone] CLIA No. [id number] Specimen Performing Organization Address City/State/[facility] [email or web address] Phone Number D LAB ABORH INVESTIGATION Routine (04/05/2019 5:28 AM CDT) ABO & RH A Negative LAB Comment: 4 drops plasma; Rh 0 [facility] [facility] - [facility] Blood [place] [address] Toll Free: [phone] CLIA No. 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 - Primary S/P CABG (coronary artery bypass graft) Postsurgical aortocoronary bypass status S/P CABG x 2 on 04/05/2019 Postsurgical aortocoronary bypass status TE on CPAP Obstructive sleep apnea (adult) (pediatric) Hyperlipidemia Other and unspecified hyperlipidemia HTN (hypertension) Unspecified essential hypertension Former smoker Personal history of tobacco use, presenting hazards to health Borderline diabetes Other abnormal glucose documented in this encounter Administered Medications Medication Order MAR Action Action Date Dose Rate Site acetaminophen-codeine (TYLENOL Given 04/10/2019 1:42 PM CDT 1 tablet #3) 300-30 mg tablet 1 tablet 1 tablet, Oral, Q6HPRN, Starting Tue04/06/19 at 1901, Until Discontinued, Routine, Pain (scale 4-6) Given 04/10/2019 9:57 AM CDT 1 tablet Given 04/09/2019 8:13 PM CDT 1 tablet acetaminophen-codeine (TYLENOL #3) 300-30 Given 04/09/2019 1:58 AM CDT 2 tablets mg tablet 2 tablet 2 tablet, Oral, Q4HPRN, Starting Tue04/06/19 at 1901, Until Discontinued, Routine, Pain (scale 7-10) Given 04/08/2019 8:45 PM CDT 2 tablets Given 04/08/2019 2:33 PM CDT 2 tablets aspirin chewable tablet 81 mg Given 04/10/2019 9:56 AM CDT 81 mg 81 mg, Oral, DAILY, First dose on Tue04/07/19 at 0900, Until Discontinued, Routine Given 04/09/2019 8:55 AM CDT 81 mg Given 04/08/2019 7:30 AM CDT 81 mg docusate (COLACE) capsule 100 mg Given 04/08/2019 7:30 AM CDT 100 mg 100 mg, Oral, DAILY, First dose on Tue04/06/19 at 0900, Until Discontinued, Routine Given 04/07/2019 8:09 AM CDT 100 mg Given 04/06/2019 7:43 AM CDT 100 mg ferrous sulfate tablet 325 mg Given 04/10/2019 9:56 AM CDT 325 mg 325 mg, Oral, BID MEALS, First dose on Tue04/06/19 at 1700, Until Discontinued, Routine Given 04/09/2019 5:47 PM CDT 325 mg Given 04/09/2019 8:55 AM CDT 325 mg furosemide (LASIX) tablet 20 mg Given 04/10/2019 9:56 AM CDT 20 mg 20 mg, Oral, QAM+PM, First dose on Tue04/06/19 at 0915, Until Discontinued, Routine Given 04/09/2019 5:47 PM CDT 20 mg Given 04/09/2019 8:55 AM CDT 20 mg heparin injection 5,000 Units Given 04/09/2019 8:30 PM CDT 5,000 Units Abdomen-SC 5,000 Units, Subcutaneous, BID, First dose on Tue04/06/19 at 2000, Until Discontinued, Routine Given 04/08/2019 8:50 PM CDT 5,000 Units Abdomen-SC Given 04/08/2019 7:38 AM CDT 5,000 Units Left Arm ipratropium-albuterol (DUONEB) 0.5 mg-3 mg(2.5 Given 04/10/2019 10:48 AM CDT 3 mL mg base)/3 mL nebulizer solution 3 mL 3 mL, Inhalation, QID, First dose on Tue04/08/19 at 0800, Until Discontinued, Routine Given 04/10/2019 6:57 AM CDT 3 mL Given 04/09/2019 6:45 PM CDT 3 mL melatonin (MELATIN) tablet 3 mg Given 04/10/2019 2:54 AM CDT 3 mg 3 mg, Oral, QHSPRN, Starting Tue04/10/19 at 0246, Until Discontinued, Routine, Insomnia metoprolol tartrate (LOPRESSOR) tablet 50 mg Given 04/10/2019 1:42 PM CDT 50 mg 50 mg, Oral, Q8H, First dose on Tue04/10/19 at 1400, Until Discontinued, Routine Given 04/10/2019 7:16 AM CDT 50 mg NaCl 0.9% (NS) injection 5 mL 5 mL, Slow IV Push, PRN - SEE INSTRUCTIONS, Starting Tue04/08/19 at 0755, Until Discontinued, 10 mL naloxone (NARCAN) injection 0.1 mg 0.1 mg, Slow IV Push, SEE-INSTRUCTIONS, Starting Tue04/05/19 at 1335, Until Discontinued, Routine rosuvastatin (CRESTOR) tablet 20 mg Given 04/09/2019 8:13 PM CDT 20 mg 20 mg, Oral, QHS, First dose on Tue04/05/19 at 2100, Until Discontinued, Routine Given 04/08/2019 8:45 PM CDT 20 mg Given 04/07/2019 7:28 PM CDT 20 mg sennosides (SENOKOT) tablet 8.6 mg Given 04/08/2019 7:30 AM CDT 8.6 mg 8.6 mg, Oral, DAILY, First dose on Tue04/06/19 at 0900, Until Discontinued, Routine Given 04/07/2019 8:09 AM CDT 8.6 mg Given 04/06/2019 7:43 AM CDT 8.6 mg Sliding Scale Insulin - Aspart Given 04/10/2019 9:58 AM 1 Units Right Upper (NOVOLOG) + Fsbg Testing CDT Arm-SC Subcutaneous, TID MEALS+HS, First dose on Tue04/06/19 at 2100, Until Discontinued, Routine Given 04/09/2019 12:00 PM CDT 1 Units Abdomen-SC Given 04/08/2019 12:18 PM CDT 1 Units Right Arm spironolactone (ALDACTONE) tablet 25 mg Given 04/10/2019 9:57 AM CDT 25 mg 25 mg, Oral, DAILY, First dose on Tue04/06/19 at 0915, Until Discontinued, Routine Given 04/09/2019 8:55 AM CDT 25 mg Given 04/08/2019 7:30 AM CDT 25 mg Medication Order MAR Action Action Date Dose Rate Site acetaminophen (TYLENOL) tablet Given 04/05/2019 5:53 AM CDT 1,000 mg 1,000 mg 1,000 mg, Oral, ONCE, 1 dose, Tue04/05/19 at 0515, Routine, DSU Pre-op acetaminophen-codeine (TYLENOL #3) 300-30 Given 04/06/2019 4:57 PM CDT 1 tablet mg tablet 1 tablet 1 tablet, Oral, Q6HPRN, Starting Tue04/05/19 at 1318, Until Tue04/06/19 at 1901, Routine, Pain (scale 4-6) Given 04/06/2019 7:43 AM CDT 1 tablet albumin (ALBUMINAR-5) 5 % injection 25 g Given 04/05/2019 4:27 PM CDT 12.5 g 25 g, IV Infusion, ONCE, 1 dose, Tue04/05/19 at 1545, 500 mL, Indication: POST-OPERATIVE VOLUME RESUSCITATION-CARDIAC SURGERY, Comments: May only be used if 3L or more of crystalloid has been administered within a given 24 hour period without an adequate hemodynamic response. aspirin chewable tablet 81 mg Given 04/06/2019 7:43 AM CDT 81 mg 81 mg, Oral, DAILY, First dose on Tue04/05/19 at 2100, Until Discontinued, Routine Given 04/05/2019 9:28 PM CDT 81 mg calcium gluconate 1,000 mg in NaCl 0.9% Given 04/05/2019 5:22 PM CDT 1,000 mg (NS) 50 mL piggyback 1,000 mg, IV Piggyback, ONCE, 1 dose, Tue04/05/19 at 1530, 50 mL ceFAZolin in dextrose (iso-os) (ANCEF) 2 Given 04/06/2019 5:53 AM CDT 2 g gram/100 mL Piggyback 2 g 2 g (2,000 mg), IV Piggyback, Q8H ABX, 3 doses, First dose on Linda 04/05/19 at 1330, Last dose on Tue04/06/19 at 0530, 100 mL, Reason for Anti-Infective: Surgical Prophylaxis, Surgical Prophylaxis: Cardiothoracic, Duration of therapy: within 24 hours of surgery Given 04/05/2019 9:28 PM CDT 2 g Given 04/05/2019 3:10 PM CDT 2 g D5W-LR IV infusion 1,000 mL New Bag 04/05/2019 3:11 PM CDT 1,000 mL 50 mL/hr at 50 mL/hr, IV Infusion, CONTINUOUS, Starting Linda 04/05/19 at 1330, Until Tue04/06/19 at 0601, GENEVA FENTanyl [employer]EE [employer]ATIONS [employer] (5 mcg/mL NS) New Bag 04/05/2019 6:07 PM CDT 300 mcg 300 mcg, Intravenous, 60 mL, CONTINUOUS, Starting Linda 04/05/19 at 1445, Until 04/07/19 at 1247 furosemide (LASIX) tablet 20 mg Given 04/08/2019 10:42 AM CDT 20 mg 20 mg, Oral, ONCE, 1 dose, [place] 04/08/19 at 1000, Routine furosemide (LASIX) tablet 20 mg Given 04/09/2019 8:55 AM CDT 20 mg 20 mg, Oral, ONCE, 1 dose, 04/09/19 at 0800, Routine gabapentin (NEURONTIN) tablet 600 mg Given 04/05/2019 5:53 AM CDT 600 mg 600 mg, Oral, ONCE, 1 dose, [place] 04/05/19 at 0515, Routine, DSU Pre-op heparin injection 5,000 Units Given 04/06/2019 7:43 AM CDT 5,000 Units Abdomen-SC 5,000 Units, Subcutaneous, Q12H, First dose on Tue04/06/19 at 0800, Until Discontinued, Routine KCL (KLOR-CON M20) tablet 40 mEq Given 04/09/2019 11:33 PM CDT 40 mEq 40 mEq, Oral, ONCE, 1 dose, 04/09/19 at 2315, GENEVA lactated ringers IV infusion Dose/Rate Verify 04/06/2019 6:15 AM CDT 50 mL/hr 1,000 mL at 50 mL/hr, 1,000 mL, IV Infusion, CONTINUOUS, Starting Tue04/06/19 at 0615, Until Tue04/06/19 at 0912, Routine lactated ringers IV infusion 1,000 Rate Change 04/06/2019 12:59 PM CDT 20 mL/hr mL at 20 mL/hr, 1,000 mL, IV Infusion, CONTINUOUS, Starting Tue04/06/19 at 0915, Until [place] 04/08/19 at 0755, Routine magnesium hydroxide (MILK OF MAGNESIA) 400 Given 04/08/2019 7:31 AM CDT 30 mL mg/5 mL suspension 30 mL 30 mL, Oral, ONCE, 1 dose, [place] 04/08/19 at 0800, Routine metoprolol tartrate (LOPRESSOR) half tablet Given 04/06/2019 7:43 AM CDT 12.5 mg 12.5 mg 12.5 mg, Oral, BID, First dose on Tue04/06/19 at 0800, Until Discontinued, Routine metoprolol tartrate (LOPRESSOR) half tablet Given 04/06/2019 9:46 AM CDT 12.5 mg 12.5 mg 12.5 mg, Oral, ONCE NOW, 1 dose, Tue04/06/19 at 0915, Routine metoprolol tartrate (LOPRESSOR) tablet 25 mg Given 04/05/2019 5:53 AM CDT 25 mg 25 mg, Oral, ONCE NOW, 1 dose, [facility] 04/05/19 at 0515, Routine, DSU Pre-op metoprolol tartrate (LOPRESSOR) tablet 25 mg Given 04/08/2019 8:45 PM CDT 25 mg 25 mg, Oral, Q12H, First dose on Tue04/06/19 at 2000, Until Discontinued, Routine Given 04/08/2019 7:37 AM CDT 25 mg Given 04/07/2019 7:28 PM CDT 25 mg metoprolol tartrate (LOPRESSOR) tablet 50 mg Given 04/09/2019 8:13 PM CDT 50 mg 50 mg, Oral, Q12H, First dose on Tue04/09/19 at 0800, Until Discontinued, Routine Given 04/09/2019 8:55 AM CDT 50 mg NORepinephrine (LEVOPHED) New Bag 04/05/2019 5:24 PM 0.08 mcg/kg/min 31.95 mL/hr 4 mg in D5W 250 mL CDT infusion 0.05 mcg/kg/min 106.5 kg (19.9688 mL/hr, rounded to 19.97 mL/hr), IV Infusion, TITRATE, Starting [place] 04/05/19 at 1318, Until Tue04/06/19 at 0912 pneumococcal vac polyvalent Given 04/10/2019 12:48 PM CDT 0.5 mL Right Deltoid-IM (PNEUMOVAX-23) injection 0.5 mL 0.5 mL, Intramuscular, ONCE, 1 dose, 04/10/19 at 1145, Routine Sliding Scale Insulin - Aspart Given 04/06/2019 5:06 PM CDT 1 Units Abdomen-SC (NOVOLOG) + Fsbg Testing Subcutaneous, TID MEALS+HS, First dose on Tue04/06/19 at 1200, Until Discontinued, Routine Given 04/06/2019 12:56 PM CDT 1 Units Abdomen-SC documented in this encounter [phone] [address] [phone] [place], [place] [address] (Work) [id number] documented as of this encounter
--- OUTSIDE RECORDS SUMMARY | 2019-04-10 22:38 | XMS REPORT | Summary of Care ---
:1955 Author Organization [facility] Address [address] [place] [address] Care Team Providers Name Role Phone Edward Pelaez Primary Care Provider Reason for Visit Reason Comments Notification Referral/consult HH Encounter Details Date Type Department Care Team Description 04/10/2019 Telephone [facility] Internal Edward Pelaez Notification; Medicine- [facility] Referral/consult () [facility] [address] [phone] Allergies No Known Allergiesdocumented as of this encounter (statuses as of 04/10/2019) Medications Medication Sig Dispensed Refills Start Date End Date Status aspirin 81 mg chewable Take 1 tablet 90 tablet 3 03/16/2018 Active tablet by mouth daily. ROSUVASTATIN 20 mg TAKE 1 TABLET 90 tablet 1 02/19/2019 Active tablet BY MOUTH EVERYDAY AT BEDTIME ferrous sulfate 325 mg Take 1 tablet 60 tablet 0 04/10/2019 Active (65 mg iron) by mouth 2 tabletIndications: (two) times Coronary artery daily with disease involving meals. chilkat coronary artery of chilkat heart with other form of angina pectoris metoprolol tartrate 50 Take 1 tablet 90 tablet 2 04/10/2019 Active mg tabletIndications: by mouth every S/P CABG (coronary 8 (eight) artery bypass graft) hours. spironolactone 25 mg Take 1 tablet 7 tablet 0 04/10/2019 04/17/2019 Active tabletIndications: by mouth daily Coronary artery for 7 days. disease involving chilkat coronary artery of chilkat heart with other form of angina pectoris docusate 100 mg Take 1 capsule 30 capsule 0 04/10/2019 05/10/2019 Active capsuleIndications: by mouth daily S/P CABG (coronary for 30 days. artery bypass graft) furosemide 40 mg Take 1 tablet 14 tablet 0 04/10/2019 04/17/2019 Active tabletIndications: by mouth every Coronary artery morning and disease involving evening for 7 chilkat coronary artery days. of chilkat heart with other form of angina pectoris acetaminophen-codeine Take 1 tablet 42 tablet 0 04/10/2019 04/17/2019 Active 300-30 mg by mouth every tabletIndications: S/P 4 (four) hours CABG (coronary artery as needed for bypass graft) Pain (scale 7-10) for up to 7 days. 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 Overview: Added automatically from request for surgery [id number] Abdominal pain, epigastric 03/02/2019 Overview: Added automatically from request for surgery [id number] Colon cancer screening 03/02/2019 Overview: Added automatically from request for surgery [id number] Obesity (BMI 30-39.9) 04/26/2018 TE on CPAP [...] Office Visit Surgery Bobbi Marquez MD [address] [facility] [address] [place], [place] [id number] 04/18/2019 Office Visit Thoracic Surgery Hernan Menchaca Jr., MD [address] [place] [address] 08/29/2019 Office Visit Cardiology Wallace Gomez MD [address] [facility] [address] [place] [address] [phone] 08/30/2019 Office Visit Internal Medicine Edward Pelaez [address] [place] [address] [phone] 09/10/2019 Office Visit Gastroenterology Pasquale Baca MD [address] [place], [place] [id number] Health Maintenance Due Date Last Done Comments [...] Dates Phone Address Type [employer]ET[employer] AETNA HMO [id number] 2017-Present HMO documented as of this encounter
--- OUTSIDE RECORDS SUMMARY | 2019-04-10 22:38 | XMS REPORT ---
:1955 Author Organization [facility] Address [address] [place] [address] Dr. Ceja [address] [place] [address] Care Team Providers Name Role Phone Unavailable Unavailable Unavailable Problems This patient has no known problems. Allergies, Adverse Reactions, Alerts This patient has no known allergies or adverse reactions. Medications This patient has no known medications.
[2019-04-10 23:33] LABS: Absolute Lymphocytes (CBC) 2.5 K/uL (0.7-4.9); Basophils % 0.1 % (0-1.3); Lymphocytes % 18.2 % (15.3-44.8); RBC Red Blood Cell Count 2.06 M/uL (4.33-5.43)
[2019-04-10 23:34] LABS: Protime INR 1.11
[2019-04-10 23:46] LABS: Magnesium 2.7 mg/dL (1.8-2.4); Potassium 3.3 mmol/L (3.5-5.1); Troponin (Emerg Dept Use Only) 0.13 ng/mL (0.0-0.045)
[2019-04-10 23:52] LABS: Hematocrit 18.7 % (39.6-49.0)
[2019-04-11] MEDS ORDERED: POTASSIUM 25 MEQ EFFERV TAB ONE (00:09)
--- NOTE | 2019-04-11 00:35 | ER ---
Nurse's Notes [facility] Name: Dieudonne Webber Jr Age: 64 yrs Sex: Male : 1955 Arrival Date: 04/10/2019 Time: 22:34 Bed 6 Private MD: Diagnosis: Syncope and collapse;Anemia, unspecified Presentation: 04/10 22:24 Presenting complaint: EMS states: that pt had double bypass last at [facility] in [facility] and was sent home today at 1600. Since he has been home he has had a few episodes of coughing which caused him to have syncopal episodes. Pt denies any pain. 22:24 Method Of Arrival: EMS: [facility] 22:34 Transition of care: patient was not received from another setting of care. Onset of symptoms was April 10, 2019. Risk Assessment: Do you want to hurt yourself or someone else? Patient reports no desire to harm self or others. Initial Sepsis Screen: Does the patient meet any 2 criteria? RR > 20 per min. HR > 90 bpm. Yes Does the patient have a suspected source of infection? No. Patient's initial sepsis screen is negative. Care prior to arrival: Glucose check: 198. 22:34 Acuity: AAKASH 3 Historical: - Allergies: 22:46 No Known Allergies; - Home Meds: 22:46 spironolactone 25 mg Oral tab 1 tab once daily [Active]; ferrous sulfate 325 mg (65 mg iron) Oral tab twice a day [Active]; metoprolol tartrate 50 mg Oral tab 1 tab every 8 hours [Active]; docusate sodium 100 mg Oral cap 1 cap once daily [Active]; rosuvastatin 20 mg oral tab 1 tab nightly [Active]; aspirin 81 mg Oral TbEC 1 tab once daily [Active]; benzonatate 100 mg oral cap 1 cap 3 times per day [Active]; Lasix 20 mg Oral tab 1 tab 2 times per day [Active]; metolazone 2.5 mg oral tab 1 tab x 3 days (til 04/13) [Active]; - PMHx: 22:46 CAD; Hypertension; Diabetes - NIDDM; High Cholesterol; - PSHx: 22:46 CABG; left ankle surg; - Immunization history:: Last tetanus immunization: up to date. - Social history:: Smoking status: Patient/guardian denies using tobacco. - Ebola Screening: : Patient negative for fever greater than or equal to 101.5 degrees Fahrenheit, and additional compatible Ebola Virus Disease symptoms Patient denies exposure to infectious person Patient denies travel to an Ebola-affected area in the 21 days before illness onset. Screenin:42 Abuse screen: Denies threats or abuse. Nutritional screening: No deficits noted. fc Tuberculosis screening: No symptoms or risk factors identified. Fall Risk None identified. Assessment: 23:10 General: Appears in no apparent distress. Behavior is calm, cooperative, Reports had bb double bypass and was sent home today but has had 3 syncopal episodes after coughing and daughter states pt was unresponsive and not breathing for several seconds. Pain:. Neuro: Level of Consciousness is awake, alert, obeys commands, Oriented to person, place, time, situation, Speech is normal. Cardiovascular: Heart tones S1 S2 present Capillary refill < 3 seconds Patient's skin is warm and dry. Pulses are palpable in right radial artery and left radial artery Edema is 1+ to left ankle and right ankle. Respiratory: Airway is patent Respiratory effort is even, unlabored, Respiratory pattern is regular, Breath sounds are clear bilaterally. GI: No signs and/or symptoms were reported involving the gastrointestinal system. Derm: Skin is pink, warm \T\ dry. Derm: multiple bandages in place, clean, dry and intact to sternum, right neck and right femoral area. Musculoskeletal: Circulation, motion, and sensation intact. 23:58 Reassessment: Patient is alert, oriented x 3, equal unlabored respirations, skin bb warm/dry/pink. Dr Key at bedside for discussion of findings and recommendations pt to be transferred back to [facility] for continuity of care pt and family verbalized understanding of and agree to plan of care. 04/11 00:15 Reassessment: report called to Roxane LATIF at [facility]. matt 00:40 Reassessment: [facility] at bedside for transfer of pt to [facility]. Pt is A\T\O x 4, resp bb unlabored, IV site intact with no erythema or edema noted. Vital Signs: 04/10 22:24 BP 124 / 69; Pulse 108; Resp 22; Temp 98.9(O); Pulse Ox 95% on R/A; Weight 112.49 kg fc (R); Height 5 ft. 8 in. (172.72 cm) (R); Pain 0/10; 04/11 00:00 BP 120 / 71; Pulse 104; Resp 20 S; Pulse Ox 99% on R/A; bb 04/10 22:24 Body Mass Index 37.71 (112.49 kg, 172.72 cm) ED Course: 04/10 22:24 Arm band placed on Patient placed in an exam room, on a stretcher. 22:24 Patient has correct armband on for positive identification. Placed in gown. Bed in low fc position. Call light in reach. Side rails up X2. shelter monitor on. Pulse ox on. NIBP on. 22:24 No provider procedures requiring assistance completed. 22:34 Patient arrived in ED. 22:35 Frank Key MD is Attending Physician. 22:37 Triage completed. 23:10 Khushbu Flores RN is Primary Nurse. bb 23:33 X-ray completed. Portable x-ray completed in exam room. Patient tolerated procedure kw well. 23:36 XRAY Chest (1 view) In Process Unspecified. EDMS 23:54 Notified ED physician of a critical lab result(s). HGB of 6.1, HCT of 18.7. Dr Yesi gutierrez notified. 04/11 00:24 Patient transferred, IV remains in place. bb Administered Medications: 00:17 Drug: Potassium Effervescent Tablet 25 mEq Route: PO; bb Outcome: 00:24 Condition: stable bb 00:24 Instructed on the need for transfer. 00:27 ER care complete, transfer ordered by . 00:43 Transferred by ground EMS to [facility], Transfer form bb completed. X-rays sent w/ patient. 00:43 Patient left the ED. bb Signatures: Dispatcher [employer] EDNV Radha Espino RN RN Khushbu Flores RN RN bb Whitley, Kimberlee kw Starr, Gregory, MD MD gs Corrections: (The following items were deleted from the chart) 04/10 22:37 22:34 Presenting complaint: EMS states: that pt had double bypass last at [facility] in [facility] and was sent home today at 1600. Since he has been home he has had a few episodes of coughing which caused him to have syncopal episodes. Pt denies any pain. 22:37 22:34 Method Of Arrival: EMS: [facility]
--- NOTE | 2019-04-11 00:37 | EDPHYS ---
Physician Documentation [facility] Name: Dieudonne Webber Jr Age: 64 yrs Sex: Male : 1955 Arrival Date: 04/10/2019 Time: 22:34 Bed 6 Private MD: ED Physician Frank Key HPI: 04/11 00:06 This 64 yrs old Male presents to ER via EMS with complaints of Syncope. gs 00:06 The patient has experienced syncope, became unresponsive. Onset: The symptoms/episode gs began/occurred acutely, yesterday, TWICE TODAY. Duration: The patient has had multiple episodes. Associated injury: The patient did not suffer any apparent associated injury. Associated signs and symptoms: Pertinent negatives: abdominal pain, chest pain, shortness of breath. Current symptoms: Currently, the patient is not experiencing any symptoms. The patient has experienced similar episodes in the past, a few times. The patient has been recently seen by a physician: [facility] CABG. Historical: - Allergies: 04/10 22:46 No Known Allergies; fc - Home Meds: 22:46 spironolactone 25 mg Oral tab 1 tab once daily [Active]; ferrous sulfate 325 mg (65 mg fc iron) Oral tab twice a day [Active]; metoprolol tartrate 50 mg Oral tab 1 tab every 8 hours [Active]; docusate sodium 100 mg Oral cap 1 cap once daily [Active]; rosuvastatin 20 mg oral tab 1 tab nightly [Active]; aspirin 81 mg Oral TbEC 1 tab once daily [Active]; benzonatate 100 mg oral cap 1 cap 3 times per day [Active]; Lasix 20 mg Oral tab 1 tab 2 times per day [Active]; metolazone 2.5 mg oral tab 1 tab x 3 days (til 04/13) [Active]; - PMHx: 22:46 CAD; Hypertension; Diabetes - NIDDM; High Cholesterol; fc - PSHx: 22:46 CABG; left ankle surg; fc - Immunization history:: Last tetanus immunization: up to date. - Social history:: Smoking status: Patient/guardian denies using tobacco. - Ebola Screening: : Patient negative for fever greater than or equal to 101.5 degrees Fahrenheit, and additional compatible Ebola Virus Disease symptoms Patient denies exposure to infectious person Patient denies travel to an Ebola-affected area in the 21 days before illness onset. ROS: 04/11 00:06 All other systems are negative. gs Exam: 00:06 Head/Face: Normocephalic, atraumatic. Eyes: Pupils equal round and reactive to light, gs extra-ocular motions intact. Lids and lashes normal. Conjunctiva and sclera are non-icteric and not injected. Cornea within normal limits. Periorbital areas with no swelling, redness, or edema. ENT: Nares patent. No nasal discharge, no septal abnormalities noted. Tympanic membranes are normal and external auditory canals are clear. Oropharynx with no redness, swelling, or masses, exudates, or evidence of obstruction, uvula midline. Mucous membranes moist. Neck: Trachea midline, no thyromegaly or masses palpated, and no cervical lymphadenopathy. Supple, full range of motion without nuchal rigidity, or vertebral point tenderness. No Meningismus. 00:06 Chest/axilla: Inspection: WOUND DRESSING INTACT. 00:24 Abdomen/GI: Soft, non-tender, with normal bowel sounds. No distension or tympany. No gs guarding or rebound. No evidence of tenderness throughout. Back: No spinal tenderness. No costovertebral tenderness. Full range of motion. Skin: Warm, dry with normal turgor. Normal color with no rashes, no lesions, and no evidence of cellulitis. MS/ Extremity: Pulses equal, no cyanosis. Neurovascular intact. Full, normal range of motion. Neuro: Awake and alert, GCS 15, oriented to person, place, time, and situation. Cranial nerves II-XII grossly intact. Motor strength 5/5 in all extremities. Sensory grossly intact. Cerebellar exam normal. Normal gait. 00:24 Cardiovascular: Rate: tachycardic, Rhythm: regular, Pulses: no pulse deficits are appreciated, Edema: 2+ edema to level of left midcalf and right midcalf. 00:24 ECG was reviewed by the Attending Physician. 00:24 Respiratory: the patient does not display signs of respiratory distress, Respirations: tachypnea, Breath sounds: are clear throughout. Vital Signs: 04/10 22:24 BP 124 / 69; Pulse 108; Resp 22; Temp 98.9(O); Pulse Ox 95% on R/A; Weight 112.49 kg fc (R); Height 5 ft. 8 in. (172.72 cm) (R); Pain 0/10; 04/11 00:00 BP 120 / 71; Pulse 104; Resp 20 S; Pulse Ox 99% on R/A; bb 04/10 22:24 Body Mass Index 37.71 (112.49 kg, 172.72 cm) fc MDM: 04/10 22:47 Patient medically screened. 04/11 00:24 Differential Diagnosis: cardiac arrhythmia, seizure, vasovagal episode, ANEMIA. Data reviewed: vital signs, nurses notes, lab test result(s), EKG, radiologic studies. Counseling: I had a detailed discussion with the patient and/or guardian regarding: the historical points, exam findings, and any diagnostic results supporting the discharge/admit diagnosis, the need to transfer to another facility. 04/10 22:47 Order name: Basic Metabolic Panel; Complete Time: 23:56 04/10 22:47 Order name: CBC with Diff; Complete Time: 23:56 04/10 22:47 Order name: Magnesium; Complete Time: 23:56 04/10 22:47 Order name: PT-INR; Complete Time: 23:56 04/10 22:47 Order name: Troponin (emerg Dept Use Only); Complete Time: 23:56 04/10 22:47 Order name: XRAY Chest (1 view) 04/10 22:47 Order name: EKG; Complete Time: 22:48 04/10 22:47 Order name: Cardiac monitoring; Complete Time: 23:14 04/10 22:47 Order name: EKG - Nurse/Tech; Complete Time: 23:14 04/10 22:47 Order name: IV Saline Lock; Complete Time: 23:14 04/10 22:47 Order name: Labs collected and sent; Complete Time: 23:14 04/10 22:47 Order name: O2 Per Protocol; Complete Time: 23:14 04/10 22:47 Order name: O2 Sat Monitoring; Complete Time: 23:14 gs EC:24 Rate is 103 beats/min. [place] interval is normal. QRS interval is prolonged. T waves are gs Flattened. Clinical impression: Abnormal EKG without significant change. Interpreted by me. Administered Medications: 00:17 Drug: Potassium Effervescent Tablet 25 mEq Route: PO; bb Disposition: 04/11/19 00:27 Transfer ordered to [facility]. Diagnosis are Syncope and collapse, Anemia, unspecified. - Reason for transfer: Higher level of care. - Accepting physician is PLASCENCIA. - Condition is Stable. - Problem is new. - Symptoms have improved. Critical care time excluding procedures: 00:24 Critical care time: Bedside Care: 10 minutes, Consultation: 10 minutes, Family gs Intervention: 10 minutes. Total time: 30 minutes Signatures: Dispatcher [employer] EDRadha Hill RN RN fc Ballard, Brenda, RN RN bb Starr, Gregory, MD MD gs Corrections: (The following items were deleted from the chart) 00:43 00:27 04/11/2019 00:27 Transfer ordered to [facility]. Diagnosis is Syncope and bb collapse; Anemia, unspecified. Reason for transfer: Higher level of care. Accepting physician is TEMO. Condition is Stable. Problem is new. Symptoms have improved. gs
--- NOTE | 2019-04-11 07:43 | RAD REPORT ---
EXAM DESCRIPTION: Tamiko Single View04/10/2019 11:35 pm CLINICAL HISTORY: Chest pain COMPARISON: None FINDINGS: The lungs appear clear of acute infiltrate. The heart is mildly enlarged. Postsurgical changes involve the chest. IMPRESSION: No acute abnormalities displayed
--- NOTE | 2019-04-11 08:57 | EKG ---
Test Date: 2019-04-10 Test Time: 22:59:19 Petroleum Inspector Supervisor: NIKKYT MEASUREMENT RESULTS: Intervals: Rate: 107 VT: 146 QRSD: 134 QT: 392 QTc: 523 [place]: P: 35 VT: 146 QRS: -6 T: 35 INTERPRETIVE STATEMENTS: Sinus tachycardia Possible Left atrial enlargement Right bundle branch block Cannot rule out Inferior infarct, age undetermined Abnormal ECG No previous ECG available for comparison Electronically Signed On 04-11-19 08:56:14 CDT by Rajeev Chow
== END 2019-04-11 00:43 | disposition short-term general hospital (02) ==
LOC: ER 22:33
DX: D64.9 Anemia, unspecified (principal); Z95.1 Presence of aortocoronary bypass graft; I10 Essential (primary) hypertension; E11.9 Type 2 diabetes mellitus without complications; E78.00 Pure hypercholesterolemia, unspecified; Z79.82 Long term (current) use of aspirin
CPT/HCPCS: 36415; 71045; 80048; 83735; 84484; 85025; 85610; 93005; 99285